=== PATIENT | male | born 1945 | race Caucasian/White ===

== ENCOUNTER → 2016-11-20 | Outpatient (CLI) | payer OTHER ==
[~2016-11-20] VITALS: Ht 175.3 cm; Wt 77.6 kg
[~2016-11-20] MED LIST: ACETAMINOPHEN-1 EACH; AFRIN MENTHOL S15 ML; AFRIN MENTHOL S15 ML NS; AFRIN NASAL SPRAY NASAL; ALEVE220 MG; ALLOPURINOL 10100 M1 PO; AMBEREN; AMBIEN 10 MG TA10 MG; AMBIEN 10 MG TA10 MG PO; ANAPROX PO; APAP500 PO; ATIVAN1 MG PO; BEANO1 EACH; BEANO1 EACH PO; BENADRYL25 MG; BENADRYL25 MG PO; BIOTIN PO; BUTALB-ACETAMI1 EAC1 PO; BUTALB-APAP-CA1 EACH PO; CALCIUM; CARDURA8 MG; CARDURA8 MG PO; CATAPRES-TTS 10.1 MG PO; CATAPRES0.2 MG PO; CITRACAL PLUS1 EAC1 PO; CLONAZEPAM 1 MG1 M1; CLONAZEPAM 1 MG1 M1 PO; CLONIDINE; CLONIDINE HCL0.2 M2 PO; CO Q-1010 MG; CO Q-10100 MG PO; COLACE1 EAC1; COLACE100 MG; COLACE100 MG PO; COUMADIN 5 MG TA5 M1; COUMADIN 5 MG TA5 M1 PO; CRESTOR10 MG; CRESTOR10 MG PO; CVS FISH OIL 11 EAC3; CYTOMEL 25 MCG25 MCG; DOXYLAMINE; ENDOCET; EYE LUBRICANT; FIBER0.52 GM; FIORICET 50-321 EACH PO; FISH OIL 1,001000 M2 PO; FLAX OIL1000 MG PO; FLECAINIDE ACE150 MG; FLECAINIDE ACE150 MG PO; FLECAINIDE ACET50 M1 PO; FLECTOR PATCH1 EA TP; FML 0.1% 10ML10 M1; GAS-X125 MG; GLUCOSAMIN-CHO1 EACH PO; GREEN TEA1 EACH; HYDRALAZINE 5050 MG PO; HYDROCHLOROTHIA25 M1; HYDROCHLOROTHIA25 M1 PO; HYDROCHLOROTHIA25 M2 PO; IRON325; IRON325 PO; KLOR-CON 1010 MEQ; KLOR-CON 1010 MEQ PO; LEVOTHYROXINE0.2 M1 PO; LIPITOR20 MG PO; LISINOPRIL20 MG PO; LISINOPRIL30 MG; LISINOPRIL40 MG PO; LYRICA 50 MG50 MG PO; LYRICA 75 MG CA75 MG PO; MAGNESIUM OXID200 MG PO; MELATONIN1 MG PO; MELATONIN3 MG PO; MELATONIN5 M1; METAMUCIL PAC1 UDPKT PO; METAMUCIL PLUS1 EACH PO; MIRALAX255 GM PO; MIRAPEX0.125 MG; MIRAPEX0.125 MG PO; MULTIVITAMINS; MYLANTA TABLET1 TA1; Melatonin PO; NEXIUM40 MG; NEXIUM40 MG PO; OCUVITE LUTEIN1 EAC1 PO; OCUVITE TABLET1 EAC1 PO; OMEGA-3 FISH1000 MG; OMEPRAZOLE-BIC1 EAC1 PO; OMEPRAZOLE-BIC1 EACH PO; OMEPRAZOLE40 MG PO; ONDANSETRON HCL4 M2 PO; OXYCODONE HCL10 MG PO; OXYCODONE HCL15 MG; OXYCODONE HCL15 MG PO; OXYCONTIN30 MG; OXYCONTIN30 MG PO; OXYCONTIN60 MG PO; PEPCID COMPLET1 EACH; PEPCID COMPLET1 EACH PO; PRADAXA150 MG PO; PROBIOTIC1 EAC1 PO; RAPAFLO8 MG PO; SENOKOT-S TABL1 EACH; SENOKOT-S1 TA1; SONATA10 MG; SONATA10 MG PO; SYNTHROID PO; SYNTHROID125 MCG PO; SYNTHROID150 MCG PO; SYNTHROID25 MCG PO; TAMBOCOR PO; TOPROL XL25 MG; TOPROL XL25 MG PO; TUMS200 MG PO; UNISOM SLEEP AI25 MG PO; VITAMIN B 1 PO; VITAMIN B COMP1 EAC7 PO; VITAMIN B PO; VITAMIN B2 PO; VITAMIN D1000 UNI1; VITAMIN D1000 UNI1 PO; VITAMIN D3400 UNI1 PO; VITAMIN D400 UNI1; VITAMINC500 PO; ZOCOR 10 MG TAB10 MG PO; [UNRECOGNIZED DRUG - CODE] PO; [UNRECOGNIZED DRUG - OTHER]; [UNRECOGNIZED DRUG - OTHER]; [UNRECOGNIZED DRUG - OTHER]; [UNRECOGNIZED DRUG - OTHER] PO
--- NOTE | ~2016-11-20 | HPC ---
[facility] [address] [address] PAIN MANAGEMENT CONSULTATION Name: TELLY EVANS Room #: REG HEIDY Shelton.#: [id number] Admission: 11/20/16 Attend Phys: Cliff Harper MD Discharge: Date of : 47 Report #: [id number] THIS REPORT FOR: //name// CC: Leonard Harper DATE OF SERVICE: 11/20/2016 Followup visit for medication management of chronic intractable pain, fibromyalgia, multiple back pain and arthritis. The patient returns to clinic today for consultation, says he is having increasing pain throughout his back and into his legs. He remains on a complex polypharmacy regimen. He has longstanding neurosis with depression and anxiety, which has been pretty stable for quite some time now. He has had complaints of foot pain which may be consistent with neuropathy or radiculopathy. He is currently on fairly high dose oxycodone, 30 mg of OxyContin b.i.d. and Oxy 15 one tablet 4 times daily for breakthrough pain. He has been quite stable on this medication for some time and has been on a written opioid agreement. I have reviewed his record back as far as it has been thinned to 2008, this has been stable dose. His other medications have also been part of that regimen. We spent some time today discussing the CDC guidelines which recommend top level of medication at the morphine milligram equivalency of 90 per day. He is currently on twice that. With his underlying depression, anxiety, neurosis, the thought of tapering him created a bit of distress. I decided today that we would not change his medication, but I have told him that in the future, we may consider tapering his doses ever so slightly. I think that we could probably taper his Oxy 15 breakthrough medications to Oxy 10 and at next visit, we will attempt that adjustment. I have decided knowing the patient will be best preparing for that adjustment. Tapering his medications on a day when he comes in complaining of increased pain is difficult. The pain is diffuse, is not consistent with specific radiculopathy. He is not a good candidate for injection therapy having failed in the past and also had significant side effects from steroids. PHYSICAL EXAMINATION: His affect is pleasant. He only became anxious when we began discussing his medication adjustments. VITAL SIGNS: Blood pressure 146/87, heart rate 70, respirations 14, BMI is 25.2. EXTREMITIES: He moves from sitting to standing position, he ambulates without antalgic features. IMPRESSION: [facility] [address] [place] [address] PAIN MANAGEMENT CONSULTATION Name: TELLY EVANS [facility] [id number] Admission: 11/20/16 Attend Phys: Cliff Harper MD Discharge: Date of : 47 Report #: [id number] 1. Chronic intractable back pain. 2. Fibromyalgia. 3. Multiple joint pains with osteoarthritis involving hips, knees and ankles. 4. Neurosis with depression and anxiety. 5. Sleep apnea. 6. Hypertension. 7. History of transient ischemic attacks. 8. Management of high risk medication. Medications were renewed under terms of our opioid agreement. Importance of safeguarding all medications was discussed. I reviewed his last urine drug screen which was appropriate for his oxycodone and other medications prescribed to the clinic. There were no suspected results. Follow up in 3 months. By: [id number] Cliff Harper MD /nt
[2016-11-20 13:11] VITALS: BP 146/87
== END ==
LOC: PAIN 06:33
DX: M54.9 Dorsalgia, unspecified (principal); M79.7 Fibromyalgia; M19.91 Primary osteoarthritis, unspecified site; F32.9 Major depressive disorder, single episode, unspecified; F41.9 Anxiety disorder, unspecified; I10 Essential (primary) hypertension; Z79.899 Other long term (current) drug therapy; Z86.73 Personal history of transient ischemic attack (TIA), and cerebral infarction without residual deficits; G47.30 Sleep apnea, unspecified

== ENCOUNTER → 2017-03-05 | Outpatient (CLI) | payer OTHER ==
[~2017-03-05] VITALS: Ht 172.7 cm; Wt 78.5 kg
[~2017-03-05] MED LIST changes: +ROXICODONE5 MG PO
--- NOTE | ~2017-03-05 | HPC ---
[facility] [place] [address] PAIN MANAGEMENT CONSULTATION Name: TELLY EVANS Room #: REG HEIDY Shelton.#: [id number] Admission: 03/05/17 Attend Phys: Cliff Harper MD Discharge: Date of : 47 Report #: [id number] THIS REPORT FOR: //name// CC: Cliff Matthews MD DATE OF SERVICE: 03/05/2017 Followup visit for chronic intractable pain, fibromyalgia. Multiple pain generators and medication management with polypharmacy. This is a followup visit for the patient who has been a patient of our clinic for over 10 years. He is on a fairly hefty polypharmacy regimen for management of pain, depression, anxiety and neurosis. We have worked with his medications off over the years and try to continue and utilize the lowest effective dose. He is here today with his . He is currently quite stable. He has not been hospitalized over the course of the last 3 months. He has a number of worries and anxieties. Overall, however, he continues to function at a fairly high level. His pain is a 6/10 and today he complains of pain in his back, pain in his right knee, pain in his neck, pain in both feet and hands, numbness and tingling. He has diffuse myofascial pains consistent with fibromyalgia. PAST MEDICAL HISTORY: Remarkable for fibromyalgia, history of TIA. He has sleep apnea and uses a CPAP at night. He suffers from insomnia. 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 He has diverticulitis, kidney stones and osteoarthritis. PHYSICAL EXAMINATION: He is quite pleasant today. He does appear to be in good spirits. No signs of depression, anxiety or overmedication. His blood pressure is 93/57, heart rate 58, respirations 16, BMI is 26.3. H is able to move easily from sitting to standing position, walks slowly with a stable gait. He does not appear to be a fall risk. He has diffuse tenderness associated with myofascial pains as well as osteoarthritis. IMPRESSION: 1. Chronic intractable pain with fibromyalgia and multi-joint arthralgia. 2. Chronic intractable back pain with spondylosis. 3. Neurosis with depression and anxiety. 4. Sleep apnea. 5. Hypertension. [address] [address] PAIN MANAGEMENT CONSULTATION Name: TELLY EVANS Room #: REG CLI NikitaXenia#: [id number] Admission: 03/05/17 Attend Phys: Cliff Harper MD Discharge: Date of : 47 Report #: [id number] 6. Management of high risk medication. PLAN: I will renew the following medications today under terms of our opioid agreement: 1. OxyContin 30 mg 1 tablet b.i.d., oxycodone will be reduced from 15 mg 4 times daily to 10 mg 4 times daily for breakthrough pain. This will necessitate the use of oxycodone 5 mg tablets 2 tablets taken every 6 hours as needed. Prescriptions noted the fact that this is a reduction, although the number of pills prescribed is higher. 2. Clonazepam 1 mg 60 tablets. 3. Ambien 10 mg 30 tablets 1 tablet at bedtime with 2 refills. Most recent urine drug screen was reviewed and is appropriate for medications provided. We will see him back in the pain clinic in 3 months. By: [id number] Cliff Harper MD /nt
[2017-03-05 11:03] VITALS: BP 93/57
== END | disposition home or self-care (01) ==
LOC: PAIN 07:30
DX: G89.29 Other chronic pain (principal); F32.9 Major depressive disorder, single episode, unspecified; F41.9 Anxiety disorder, unspecified; I10 Essential (primary) hypertension; M79.7 Fibromyalgia; M47.9 Spondylosis, unspecified; Z79.899 Other long term (current) drug therapy; G45.9 Transient cerebral ischemic attack, unspecified

== ENCOUNTER 2017-06-04 16:00 | Emergency (ER) | payer OTHER ==
[~2017-06-04] VITALS: Ht 172.7 cm; Wt 77.1 kg
[~2017-06-04 16:00] MED LIST changes: +MAGOX 400400 MG PO; +SYNTHROID100 MCG PO
[2017-06-04 17:15] LABS: ABSOLUTE NEUTROPHILS 3.6 thou/uL (1.4-8.2); BASOPHILS 0.8 % (0.0-2.0); EOSINOPHILS 2.6 % (0.0-3.0); HEMATOCRIT 42.2 % (42.0-52.0); HEMOGLOBIN 14.5 gm/dL (14.0-18.0); LYMPHOCYTES 17.2 % (24.0-44.0); MCH 29.8 pg (26.0-34.0); MCHC 34.3 g/dL (28.0-37.0); PLATELET COUNT 136 thou/uL (150-400); POLYS 73.4 % (36.0-66.0); RBC 4.85 mil/uL (4.50-6.00); RDW 13.9 % (10.5-14.5)
[2017-06-04 17:16] LABS: MANUAL DIFF NO
[2017-06-04 17:26] LABS: CALCIUM 9.1 mg/dL (8.5-10.1); CREATININE 1.3 mg/dL (0.7-1.3); POTASSIUM 3.9 mmol/L (3.5-5.1)
[2017-06-04] MEDS ORDERED: HYDROCORTISONE30 G9 RECTAL (18:00)
[2017-06-04 18:15] VITALS: BP 123/62
== END 2017-06-04 18:15 | disposition home or self-care (01) ==
LOC: ER 16:00
PROVIDERS: Nurse Practitioner
DX: K59.00 Constipation, unspecified (principal); K62.89 Other specified diseases of anus and rectum; G03.9 Meningitis, unspecified; I48.91 Unspecified atrial fibrillation; Z79.01 Long term (current) use of anticoagulants; E78.00 Pure hypercholesterolemia, unspecified; F41.9 Anxiety disorder, unspecified; G45.9 Transient cerebral ischemic attack, unspecified; M79.7 Fibromyalgia; Z87.442 Personal history of urinary calculi; Z88.0 Allergy status to penicillin; Z88.8 Allergy status to other drugs, medicaments and biological substances; Z91.041 Radiographic dye allergy status; Z88.1 Allergy status to other antibiotic agents; Z91.040 Latex allergy status

== ENCOUNTER → 2017-08-31 | Outpatient (CLI) | payer OTHER ==
[~2017-08-31] VITALS: Ht 172.7 cm; Wt 77.1 kg
[~2017-08-31] MED LIST changes: +FLOMAX0.4 MG PO; +HYDROCORTISONE30 G9 RECTAL; +MIRALAX17 GM PO; +NEURONTIN 300300 M1 PO
--- NOTE | ~2017-08-31 | HPC ---
[facility] [address] [address] PAIN MANAGEMENT CONSULTATION Name: TELLY EVANS Room #: REG HIEDY Shelton.#: [id number] Admission: 08/31/17 Attend Phys: Cliff Harper MD Discharge: Date of : 47 Report #: [id number] THIS REPORT FOR: //name// CC: Cliff Matthews MD DATE OF SERVICE: 08/31/2017 Followup visit for management of polypharmacy high risk medication for chronic intractable pain and multiple pain generators. The patient is here today with his . We reviewed his medication and his day-to-day functioning. He is doing reasonably well. He is looking forward to doing some additional woodworking projects. His pain has been adequately controlled with current medication regimen. We have been reluctant to change it due to his extensive past medical history. We have been able to avoid additional hospitalizations, Emergency Room visits and other issues related to pain with the current regimen. When asked to describe his pain today for the nursing surgical services director in the room, he began it is neck, occiput, went through his hands and feet, torso, hips, left leg and then added fibromyalgia with muscle aches and pains throughout his body and an extensive description of pain in his forearms. He also has migraine headaches. Despite these widespread multiple pain generators, he has over the years responded well to medication and shown no misuse or abuse. We have reviewed with him the CDC guidelines particularly the dosing recommendations and he has made efforts to taper his medication. Further tapering was recommended today and he has been agreeable to do so. We also have discussed the use of clonazepam and oxycodone. The combination of a benzodiazepine and an opioid considered dangerous certainly in naive patients. The patient would be anything, but naive. He has been on a combination of an opioid and benzodiazepine for as long as he has been within our practice. Reviewing available records in front of me, I see that he was on clonazepam 1 mg and oxycodone at much higher dose as far back as 2009. The concerns of respiratory depression and over sedation, I think are very small for the patient. Other medications that I have provided for him to aid with sleep over the years have included antidepressant medications and zolpidem, which he has been on also for a number of years without issues. Review of the record shows this was prescribed as early as 2010. PQRS review per Medicare request requirements is performed today. He does have pain in his joints consistent with age-related osteoarthritis. Multiple joints are uncomfortable including his shoulders, elbows, [place] [address] PAIN MANAGEMENT CONSULTATION Name: TELLY EVANS Room #: [facility] [id number] Admission: 08/31/17 Attend Phys: Cliff Harper MD Discharge: Date of : 47 Report #: [id number] controlled his weight with a BMI of 25.9. His vital signs are stable without signs of hypertension, although he has been treated for that in the past and currently. Blood pressure today 142/81, heart rate 61 and O2 sat on room air 96. Pain score is given as 5/10 with medication. He is not a fall risk. However, he uses a cane for stability. He is on a blood thinner Pradaxa for atrial fibrillation. He has signed an opioid agreement and has completed a functional assessment tool and risk assessment. He is at low risk for addiction. His function tool, however, suggests that he is severely limited by his pain far more so than he describes today as we discussed his day-to-day activities. He does not smoke nor use alcohol. IMPRESSION: 1. Chronic back pain with spondylosis. 2. Diffuse myofascial pain with fibromyalgia. 3. Multiple joint aches and pains including shoulders, hips and knees consistent with osteoarthritis. 4. Sleep apnea. 5. Hypertension. 6. Atrial fibrillation on Coumadin. 7. History of neurosis with depression and anxiety. PLAN: I have renewed his medications under terms of our written agreement. I have reduced his oxycodone 10/325 from 4 tablets a day to 3 tablets a day. His narcotic dose will therefore be OxyContin 30 mg b.i.d., oxycodone 10 mg/325 three per day for breakthrough pain or a total of 90 oxycodone milligrams equal to 135 morphine milligram equivalents. A buccal drug screen will be performed at next visit. Time spent with the patient 30 minutes. <ELECTRONICALLY SIGNED> By: Cliff Harper MD 10/12/17 1408 [id number] Cliff Harper MD /nt
[2017-08-31 12:47] VITALS: BP 142/81
== END ==
LOC: PAIN 07:38
DX: M47.896 Other spondylosis, lumbar region (principal); M79.7 Fibromyalgia; G47.30 Sleep apnea, unspecified; I10 Essential (primary) hypertension; I48.91 Unspecified atrial fibrillation; F32.9 Major depressive disorder, single episode, unspecified; F41.9 Anxiety disorder, unspecified; M19.012 Primary osteoarthritis, left shoulder; M19.011 Primary osteoarthritis, right shoulder; M16.0 Bilateral primary osteoarthritis of hip; M17.0 Bilateral primary osteoarthritis of knee

== ENCOUNTER → 2017-12-07 | Outpatient (CLI) | payer OTHER ==
[~2017-12-07] VITALS: Ht 172.7 cm; Wt 81.4 kg
--- NOTE | ~2017-12-07 | HPC ---
[facility] [place] [address] [address] [place] [address] PAIN MANAGEMENT CONSULTATION Name: TELLY EVANS Room #: REG HEIDY SheltonXenia#: [id number] Admission: 12/07/17 Attend Phys: Cliff Harper MD Discharge: Date of : 47 Report #: [id number] THIS REPORT FOR: //name// CC: Cliff Matthews DATE OF SERVICE: 12/07/2017 Followup visit for chronic pain. The patient with multiple pain generators as noted throughout his record. I have known him now for several decades and provide medication for him under terms of our written agreement. He has not had a buccal drug screen done in some time, it was performed today. Medications I provide are OxyContin 30 mg b.i.d., OxyIR 10 mg t.i.d. He has been chronically on a benzodiazepine, Klonopin for anxiety at 1 mg b.i.d., Ambien 10 mg at bedtime and I also gave him a compound cream that he uses from [facility] to help with his pain. His pain again really goes from head to toe including fibromyalgia, muscle aches, joint pains and other issues. Today, he complains mostly of his back, right knee, neck, feet, hands, hips, eye and his left shoulder. We talked about things that he likes to do like woodworking. He says he has not been doing as much of that because of the pain. We had a philosophical discussion about pain today and I talked to him about trying to remain as active as possible and that pain was trying to fercho him of the joyful things that he likes to do. Many of those things he can do even with pain and he should pace himself and see if he can continue to remain active. He seemed responsive to this. PHYSICAL EXAMINATION: He is pleasant, a little today. Blood pressure 108/68, heart rate 55, respirations 16. BMI 27.3. He has multiple tenderness throughout his muscles. Some pain in his joints, primarily in his left shoulder. IMPRESSION: 1. Chronic low back pain with spondylosis. 2. Fibromyalgia. 3. Osteoarthritis with multiple aching joints, primarily left shoulder today. 4. Sleep apnea. 5. Hypertension. 6. Atrial fibrillation, on Coumadin. 7. History of depression and anxiety. [facility] [address] [place] [address] PAIN MANAGEMENT CONSULTATION Name: TELLY EVANS Room #: REG [facility] Sandie#: [id number] Admission: 12/07/17 Attend Phys: Cliff Harper MD Discharge: Date of : 47 Report #: [id number] 8. Management of high risk medication under terms of written opioid agreement. I reviewed terms of his agreement. I have done his buccal drug screen today. I will plan to see him back in the pain clinic in 3 months. I did tell him that he was at a high morphine milligram equivalency today, showed him that if we combine his OxyContin and OxyIR, it comes to a total of 90 oxycodone milligrams, which equals 135 morphine milligram equivalents. This puts him in the CDC of high category and we must possibly consider tapering his medication. The patient is so challenging from a psychological standpoint, I think we need to be cautious about changing his medications and I will do it on a day where he seems more receptive and upbeat and positive. He has been on these doses for many years. By: [id number] Cliff Harper MD /nt
[2017-12-07 11:09] VITALS: BP 108/68
== END ==
LOC: PAIN 06:54
DX: M47.26 Other spondylosis with radiculopathy, lumbar region (principal); G47.30 Sleep apnea, unspecified; I10 Essential (primary) hypertension; I48.91 Unspecified atrial fibrillation; F32.9 Major depressive disorder, single episode, unspecified; F41.9 Anxiety disorder, unspecified; M79.7 Fibromyalgia; M19.012 Primary osteoarthritis, left shoulder

== ENCOUNTER → 2018-06-03 | Outpatient (CLI) | payer OTHER ==
[~2018-06-03] VITALS: Ht 172.7 cm; Wt 82.7 kg
[~2018-06-03] MED LIST changes: +MELATONIN5 M1 PO; -METAMUCIL PAC1 UDPKT PO; -OMEPRAZOLE-BIC1 EACH PO; +OMEPRAZOLE20 MG PO; +OXYCONTIN20 M1 PO; +POTASSIUM CITR15 MEQ PO; +POTASSIUM20 PO; +SYNTHROID100 MC1 PO; -SYNTHROID100 MCG PO
--- NOTE | ~2018-06-03 | HPC ---
[facility] [address] [place] [address] PAIN MANAGEMENT CONSULTATION Name: TELLY EVANS Room #: REG Chris Hooper#: [id number] Admission: 06/03/18 Attend Phys: Catia Alva Discharge: Date of : 47 Report #: [id number] THIS REPORT FOR: //name// CC: Catia Harper DATE OF SERVICE: 06/03/2018 CHIEF COMPLAINT: Followup visit for his chronic pain. He has multiple pain generators. HISTORY OF PRESENT ILLNESS: This patient returned to the clinic today for refill of his medication. He is a gentleman that has multiple pain generators. He is telling me today that he has pain in his lower back, both his feet, his shoulders and buttock, all of his hands. He tells me he has a new diagnosis of myofascial pain in his feet and he also has a neuroma. He tells me that his pain has been increasing lately and rates his pain at 8/10 today. He tells me that he has had burning, stabbing, aching, especially when he is walking and standing; seems to me that his feet are his worst pain today. He would like a refill of his medications. He is currently on OxyContin 30 mg twice a day and OxyIR 10 mg 3 times a day. ALLERGIES: GABITRIL, SAVELLA, CLINDAMYCIN, GABAPENTIN, GADOLINIUM CONTAINING CONTRAST. CURRENT LIST OF MEDICATIONS: OxyContin 30 mg twice a day, OxyIR 10 mg 3 times a day, Ambien 10 mg, clonazepam 1 mg every 12 hours, potassium 20 mEq daily, potassium citrate ER 15 mEq 3 times a day, Metamucil, Pradaxa, Flomax, omeprazole, Synthroid, mag oxide, MiraLax, melatonin, Tambocor, lisinopril, hydrochlorothiazide, Lipitor, hydralazine, butalbital, acetaminophen, caffeine, Colace, multivitamin, and metoprolol. PQRS: Today: 1. He has diffuse multiple joint osteoarthritis and lumbar spondylosis. Denies rheumatoid arthritis. 2. Height is 5 feet 8 inches, weight 182, BMI is 27.7. 3. Vital signs: Blood pressure 147/76, pulse is 63, respirations 16, oxygen sat is 98. 4. Pain intensity is 8/10. 5. Fall risk. He denies falls in the last 3 months. He does not need help walking or standing and he does not have any dizziness. 6. The patient's blood thinner is Pradaxa and he takes antihypertensive. 7. He is on opioid therapy greater than 6 weeks and an opioid signed contract is on the chart. 8. His risk assessment tool is moderate. His functional assessment is 61/70. [facility] [address] [place] [address] PAIN MANAGEMENT CONSULTATION Name: EVANSTELLY BURGER FREDIS Room #: REG HEIDY Hooper#: [id number] Admission: 06/03/18 Attend Phys: Catia Alva Discharge: Date of : 47 Report #: [id number] 9. This patient denies recreational drug use. He does not smoke and he occasionally drinks alcohol. We did check his prescription monitoring system from the [facility]. The patient is filling appropriately from Dr. Cliff Harper. There is a recent drug screen that is positive for his scheduled medications. PHYSICAL EXAMINATION: GENERAL: This is a well-developed, well-nourished gentleman of 73 years old. He appears his stated age. He is alert and oriented. His affect is appropriate. 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 Small scar on his right side. Mucous membranes are moist. Hearing is adequate. NECK: No JVD or adenopathy. He has some tenderness in his shoulders. MUSCULOSKELETAL: Complains of tenderness in his back and hips, bilateral feet burning. His muscle strength is judged to be 5/5 in all major muscle groups in his lower extremities. The patient does wear corrective shoes today. IMPRESSION: 1. Chronic intractable pain syndrome with lumbar spondylosis, osteoarthritis and fibromyalgia. 2. History of depression and anxiety. 3. Hypertension. 4. Sleep apnea. 5. Atrial fibrillation. 6. Management of complex medicine high risk under terms of written opioid agreement. We reviewed the fact that opiate medications are being used to provide analgesia adequate to support activities of daily living, not attempting to achieve a specific pain score on the 0-10 Visual Analog Scale. The current opiate medications are providing sufficient analgesia to allow the patient to participate in activities of daily living. The patient is not exhibiting any aberrant behavior suggestive of drug diversion. The patient is not having any adverse reactions to medications. The patient is not suffering from daytime somnolence or mental acuity changes. The patient is managing opiate-induced constipation with appropriate [id number] agents and dietary considerations. The patient was counseled on concern for caution with operating a motor vehicle while using opiate medications. A physical exam was performed and the patient's functional status was evaluated. All patients with back pain were advised against the bed rest greater than 4 days and were advised to return to normal activities. Pain score assessment was noted and the treatment plan was reviewed with the patient. All current medications, both prescribed and OTC were reviewed and reconciled on the [address] [address] PAIN MANAGEMENT CONSULTATION Name: TELLY EVANS Room #: REG [facility].#: [id number] Admission: 06/03/18 Attend Phys: Catia Alva Discharge: Date of : 47 Report #: [id number] electronic medical record. Tobacco screening was accomplished and smoking cessation was advised when indicated. BMI was noted and diet/exercise modification was recommended for all patients following outside normal parameters. I reviewed with the patient today their responsibilities to safeguard prescription medications, reviewed their responsibility to utilize medications only as prescribed by the physician. They are to seek and receive pain medications only from 1 physician group ( [facility]). They are to use 1 pharmacy and keep the clinic informed if they change pharmacies. Their responsibilities include making followup visits in a timely fashion and to avoid abrupt discontinuation of medication usage. Their responsibilities further include bringing their medications (bottles from the pharmacy with residual pills) to the visit for possible confirmation of pill counts and the patient understands it is their responsibility to submit to random drug screens to ensure both that the medications prescribed are present, and that no other controlled substances are present. All prescriptions provided today were generated electronically. PLAN: 1. We talked at length today about tapering his medication. Dr. Harper had discussed this at his last visit in February. It has been about a year since he has decreased his medicine and according to the CDC guidelines, he is above the 90 MME, our calculation is he is at 135 currently. The patient is complaining of increased pain today, but he is agreeable to decrease. I had offered him to decrease his OxyIR to either two tablets a day of the 10 mg or decrease to 3 tablets a day of the 7.5/325. The patient is not wanting to take any extra Tylenol; he is wondering about decreasing his OxyContin, his long acting medication. I am agreeable with that, that would take him from 135 MME to 105 MME daily. The patient is worried that his pain will increase, that he continues to have an average pain score of 8/10. We did talk about that we will not make him pain-free, his receptors will be reset and his body will adjust to his due level of medication. It had been a year since we had done it and he seems to have tolerated that decrease without difficulty. The patient agreed with that statement. 2. Scripts for OxyContin 20 mg b.i.d., #60 for today, 4-week and 8-week was given. OxyIR 10 mg, #90 for today, 4-week and 8-week was given. Other scripts: Clonazepam 1 mg every 12 hours, #60 with 2 refills; Ambien 10 mg at bedtime, #30 with 2 additional refills was also given. 3. The patient does deny constipation at this time, but I reminded him that all of these narcotics make him constipated and to make sure that he is on his bowel regimen that he uses on a daily basis. 4. The patient will be seen in 3 months' time for a followup visit for his medications unless he needs to see us earlier. [address] [address] PAIN MANAGEMENT CONSULTATION Name: TELLY EVANS Room #: REG CLI Sandie#: [id number] Admission: 06/03/18 Attend Phys: Catia Alva Discharge: Date of : 47 Report #: [id number] The patient was seen in collaboration today with Dr. Cliff Harper. <ELECTRONICALLY SIGNED> By: Catia Alva 06/04/18 1014 [id number] Catia Alva /chandra
[2018-06-03 13:20] VITALS: BP 147/76
== END ==
LOC: PAIN 10:08
DX: M47.816 Spondylosis without myelopathy or radiculopathy, lumbar region (principal); M19.90 Unspecified osteoarthritis, unspecified site; M79.7 Fibromyalgia; G89.4 Chronic pain syndrome; I10 Essential (primary) hypertension; I48.91 Unspecified atrial fibrillation; G47.30 Sleep apnea, unspecified; F32.9 Major depressive disorder, single episode, unspecified; F41.9 Anxiety disorder, unspecified; Z79.891 Long term (current) use of opiate analgesic

== ENCOUNTER → 2018-08-26 | Outpatient (CLI) | payer OTHER ==
[~2018-08-26] VITALS: Ht 172.7 cm; Wt 79.6 kg
[2018-08-26 11:06] VITALS: BP 118/72
--- NOTE | 2018-08-26 11:23 | NUR ---
Pain Clinic Assessment: 1. History of Osteoarthritis: Not Applicable History of Rheumatoid Arthritis: Not Applicable 2. Height: 5 ft. 8 in. 172.7 cm. Weight: 175.4 lb. oz. 79.561 kg. Patient's BMI: 26.7 3. Vital Signs: BP: 118/72 Pulse: 56 Resp: 20 Temp: 02 Sat: 98 ECG Mon: 4. Pain Intensity: 7 5. Fall Risk: Dizziness: N Needs help standing or walking: N Fallen in the last 3 months: N Fall risk comments: 6. Patient on Blood Thinner: Dabigatran Etex (Pradaxa) 7. History of Hypertension: Y 8. Opioid Therapy greater than 6 weeks: Y Opiate Contract Signed: 11/22/15 9. Risk Assessment Tool Provided: mod risk-4 10. Functional Assessment Tool: / 11. Recreational Drug Use: Never Drug Type: Tobacco Use: Never Smoker Tobacco Type: Amount or Packs/day: How Many Years: Alcohol Use: Yes Frequency: Quant:
--- NOTE | 2018-08-27 12:36 | HPC ---
[facility] [place] [address] PAIN MANAGEMENT CONSULTATION Name: TELLY EVANS Room #: REG CL MXeniaR.#: [id number] Admission: 08/26/18 ������������������ Attend Phys: Catia Alva Discharge: ������������������ Date of : 47 Report #: [id number] THIS REPORT FOR: //name// CC: Catia Harper DATE OF SERVICE: 08/26/2018 CHIEF COMPLAINT: Chronic pain with multiple pain generators. HISTORY OF PRESENT ILLNESS: The patient returns to the pain clinic today for refill of his medications. He tells me it has been a rough couple of months since we have decreased his medications at his last visit. The patient tells me all of his joints are hurting as well as his low back and bilateral feet. He tells me he is not sleeping very well, generalized aches and pains all over. He denies constipation. He states actually is less. He feels like since the last time he was here, thinks that reducing the medication has caused this though he does take some MiraLax as needed. He rates his pain score as 7/10 today and would like a refill of his medication or a possible increase back to where he was. ALLERGIES: GABITRIL, SAVELLA, CLINDAMYCIN, GABAPENTIN. CURRENT LIST OF MEDICATIONS: Oxycodone IR 10 mg t.i.d., Ambien 10 mg at bedtime p.r.n., OxyContin 20 mg b.i.d., clonazepam 1 mg b.i.d., potassium chloride 20 mEq daily, potassium citrate 15 mEq 3 times a day, Zestril 20 mg t.i.d., Tambocor 75 mg b.i.d., melatonin 10 mg at bedtime, MiraLax as needed, Mag-Ox 400 mg daily, Synthroid 100 mcg on Wednesdays, Synthroid 200 mcg daily, omeprazole 20 mg twice a day, Flomax 0.4 mg at bedtime, Pradaxa 150 mg b.i.d., Metamucil as needed, hydrochlorothiazide 25 mg daily, Lipitor 20 mg daily, hydralazine 50 mg t.i.d., Fioricet as needed, Colace as needed, multivitamin daily, Gas-X as needed, Unisom p.r.n., Toprol 25 mg daily. PQRS: The patient has diffuse multiple joint osteoarthritis and lumbar spondylosis. Denies rheumatoid arthritis. Height 5 feet 8 inches, weight is 175. BMI is 26. Vital signs, 118/72, pulse is 56, respirations 20, oxygen sat 98. Pain score 7/10. Fall risk, denies dizziness. Does not need help walking or standing. Has not fallen in the last 3 months. Blood thinner is Pradaxa and he does take medicines for hypertension. His opioid therapy is greater than 6 weeks. Therefore, an opioid signed contract is on the chart. His risk assessment tool is moderate and his functional assessment is 61/70. The patient denies recreational drugs. Does not smoke and occasionally drinks alcohol. We did check the prescription monitoring system. The patient is filling appropriately from his medications from Dr. Cliff Harper. He tells me that he [address] [address] PAIN MANAGEMENT CONSULTATION Name: TELLY EVANS Room #: REG HEIDY Hooper#: [id number] Admission: 08/26/18 ������������������ Attend Phys: Catia Alva Discharge: ������������������ Date of : 47 Report #: [id number] does safeguard his medications. There is a current drug screen on the chart within the past year. PHYSICAL EXAMINATION: This is a well-developed, well-nourished gentleman who appears his stated age of 73. He is alert and orientated and his affect is appropriate. 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 Normal vision on the right. Mucous membranes are moist. Hearing is adequate. MUSCULOSKELETAL: Complains of generalized tenderness in all of his joints. His muscle strength is judged to be 5/5 in all major muscle groups in his lower and upper extremities. The patient does wear corrective shoes. IMPRESSION: 1. 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 2. Osteoarthritis. 3. Fibromyalgia. 4. History of depression and anxiety. 5. Hypertension. 6. Sleep apnea. 7. Atrial fibrillation. 8. Management of complex high risk medication in terms of written opioid agreement. We reviewed the fact that opiate medications are being used to provide analgesia adequate to support activities of daily living, not attempting to achieve a specific pain score on the 0-10 Visual Analog Scale. The current opiate medications are providing sufficient analgesia to allow the patient to participate in activities of daily living. The patient is not exhibiting any aberrant behavior suggestive of drug diversion. The patient is not having any adverse reactions to medications. The patient is not suffering from daytime somnolence or mental acuity changes. The patient is managing opiate-induced constipation with appropriate edfe-vsy-rejdszk agents and dietary considerations. The patient was counseled on concern for caution with operating a motor vehicle while using opiate medications. A physical exam was performed and the patient's functional status was evaluated. All patients with back pain were advised against the bed rest greater than 4 days and were advised to return to normal activities. Pain score assessment was noted and the treatment plan was reviewed with the patient. All current medications, both prescribed and OTC were reviewed and reconciled on the electronic medical record. Tobacco screening was accomplished and smoking cessation was advised when indicated. BMI was noted and diet/exercise modification was recommended for all patients following outside normal parameters. I reviewed with the patient today their responsibilities to [facility] [address] [place] [address] PAIN MANAGEMENT CONSULTATION Name: TELLY EVANS FREDIS Room #: REG CL Sandie#: [id number] Admission: 08/26/18 ������������������ Attend Phys: Catia Alva Discharge: ������������������ Date of : 47 Report #: [id number] prescription medications, reviewed their responsibility to utilize medications only as prescribed by the physician. They are to seek and receive pain medications only from 1 physician group ( [facility]). They are to use 1 pharmacy and keep the clinic informed if they change pharmacies. Their responsibilities include making followup visits in a timely fashion and to avoid abrupt discontinuation of medication usage. Their responsibilities further include bringing their medications (bottles from the pharmacy with residual pills) to the visit for possible confirmation of pill counts and the patient understands it is their responsibility to submit to random drug screens to ensure both that the medications prescribed are present, and that no other controlled substances are present. All prescriptions provided today were generated electronically. PLAN: 1. We discussed treatment options with the patient today. We had decreased his OxyContin 3 months ago to get him closer in guidelines with the CDC. He was at 135 MME per day. By decreasing his OxyContin, he is now at 105, which is closer to the 105 MME, which is closer to the CDC guidelines of 90. The patient tells me that he had rough few months, though his pain score given today is lower than it has been and he is having less constipation and side effects from the decrease of his medications. 2. I explained to the patient as did Dr. Harper, that we will keep him at the same rate of medications that he is on now. We have no plans to decrease him in the near future. We will let him stabilize on his current medications and see how he continues to do. 3. Scripts given for OxyContin 20 mg b.i.d. for today for an 8-week release. 4. Medication OxyIR 10 mg t.i.d., #90 for today, 4-week and 8-week release, Ambien 10 mg at bedtime, #30 with 2 additional refills and clonazepam 1 mg #60, 2 additional refills. 5. The patient does voice concerns that he is worried that he will have increased pain. I told him to call if this does happen, but I continued to believe that he will stabilize on these current medications. Dr. Harper reinforced this today. 6. The patient will be seen in 3-month time period. He is in collaboration with Dr. Harper who was also present today. ��������������������������������������������� <ELECTRONICALLY SIGNED> ���������������������������������������� By: Catia Alva ��������������������������������������������� 08/27/18 1236 1326 01 Catia Alva /nt
== END ==
LOC: PAIN 06:49
DX: G89.4 Chronic pain syndrome (principal); M47.816 Spondylosis without myelopathy or radiculopathy, lumbar region; M19.90 Unspecified osteoarthritis, unspecified site; F41.8 Other specified anxiety disorders; I10 Essential (primary) hypertension; I48.91 Unspecified atrial fibrillation; G47.30 Sleep apnea, unspecified; Z79.891 Long term (current) use of opiate analgesic

== ENCOUNTER 2018-09-03 14:48 | Emergency (ER) | payer OTHER ==
[~2018-09-03] VITALS: Ht 172.7 cm; Wt 77.1 kg
[2018-09-03 15:04] LABS: ABSOLUTE NEUTROPHILS 1.7 thou/uL (1.4-8.2); BASOPHILS 1.1 % (0.0-2.0); EOSINOPHILS 3.9 % (0.0-3.0); HEMATOCRIT 41.7 % (42.0-52.0); HEMOGLOBIN 14.8 gm/dL (14.0-18.0); LYMPHOCYTES 38.5 % (24.0-44.0); MCH 30.7 pg (26.0-34.0); MCHC 35.6 g/dL (28.0-37.0); MCV 86.3 fL (80.0-100.0); MONOCYTES 8.8 % (1.0-8.0); PLATELET COUNT 139 thou/uL (150-400); POLYS 47.7 % (36.0-66.0); RBC 4.83 mil/uL (4.50-6.00); RDW 13.4 % (10.5-14.5); WBC 3.6 thou/uL (4.0-11.0)
[2018-09-03 15:46] LABS: ALBUMIN 4.2 g/dL (3.4-5.0); BUN 26 mg/dL (7-18); CALCIUM 9.5 mg/dL (8.5-10.1); CHLORIDE 96 mmol/L (98-107); CREATININE 1.2 mg/dL (0.7-1.3); GLUCOSE 127 mg/dL (74-106); POTASSIUM 3.7 mmol/L (3.5-5.1); SGOT 19 U/L (15-37); SGPT 26 U/L (30-65); SODIUM 135 mmol/L (136-145); TOTAL BILIRUBIN 0.8 mg/dL (<0.1-1.0); TROPONIN-I <0.06 ng/mL (<0.06)
[2018-09-03 15:51] LABS: ANION GAP 16 mmol/L (7-16); CO2 23 mmol/L (21-32)
[2018-09-03 16:51] VITALS: BP 154/72
--- NOTE | 2018-09-05 19:21 | EKG ---
[place] [address] [address] [facility] [place] [address] ELECTROCARDIOGRAM REPORT Name: TELLY EVANS Room #: DEP Sandie#: [id number] ������������������ Admission: 09/03/18 ������������������ Attend Phys: Discharge: 09/03/18 ������������������ Date of : 47 Report #: [id number] ����������������������������������������������������������������� [id number] THIS REPORT FOR: //name// [facility] ED Test Date: 2018-09-03 Test Time: 15:00:33 Pat Name: TELLY EVANS Department: Room: Gender: M Software Development Specialist: : 1945 Requested By: Xiomara Yoo Order Number: [id number] MD: Paulo Gusman Measurements Intervals [place] Rate: 79 P: GA: QRS: 19 QRSD: 92 T: 31 QT: 360 QTc: 413 Interpretive Statements Sinus rhythm first degree AV block PACs present Baseline artifact noted Early transition Compared to ECG 09/16/2014 13:09:49 No significant changes Electronically Signed On 09-05-2018 19:20:51 EDUCATIONAL TECHNOLOGIST by Paulo Gusman [email or web address] ��������������������������������������������� <ELECTRONICALLY SIGNED> ���������������������������������������� By: Paulo Gusman MD ��������������������������������������������� 09/05/18 1920 1500 Jillian Gusman MD /BABS
== END 2018-09-03 16:52 | disposition home or self-care (01) ==
LOC: ER 14:48
PROVIDERS: Student in an Organized Health Care Education/Training Program
DX: I47.1 Supraventricular tachycardia (principal); R42 Dizziness and giddiness; G25.81 Restless legs syndrome; I48.91 Unspecified atrial fibrillation; I10 Essential (primary) hypertension; E78.00 Pure hypercholesterolemia, unspecified; G47.00 Insomnia, unspecified; G47.30 Sleep apnea, unspecified; F41.9 Anxiety disorder, unspecified; M79.7 Fibromyalgia; Z88.8 Allergy status to other drugs, medicaments and biological substances; Z88.1 Allergy status to other antibiotic agents; Z87.442 Personal history of urinary calculi; Z86.73 Personal history of transient ischemic attack (TIA), and cerebral infarction without residual deficits

== ENCOUNTER → 2018-10-13 | Outpatient (CLI) | payer OTHER ==
[~2018-10-13] VITALS: Ht 172.7 cm; Wt 77.1 kg
[2018-10-13 07:13] VITALS: BP 105/61
[2018-10-13 07:14] LABS: ABSOLUTE NEUTROPHILS 1.1 thou/uL (1.4-8.2); BASOPHILS 1.6 % (0.0-2.0); EOSINOPHILS 6.3 % (0.0-3.0); HEMATOCRIT 40.8 % (42.0-52.0); LYMPHOCYTES 50.2 % (24.0-44.0); MCH 30.2 pg (26.0-34.0); MCHC 34.5 g/dL (28.0-37.0); MCV 87.6 fL (80.0-100.0); MONOCYTES 7.8 % (1.0-8.0); PLATELET COUNT 143 thou/uL (150-400); POLYS 34.1 % (36.0-66.0); RBC 4.65 mil/uL (4.50-6.00); RDW 13.1 % (10.5-14.5); WBC 3.3 thou/uL (4.0-11.0)
[2018-10-13 07:31] LABS: CALCIUM 9.3 mg/dL (8.5-10.1); CREATININE 1.1 mg/dL (0.7-1.3); POTASSIUM 3.8 mmol/L (3.5-5.1); PROTIME 10.7 Seconds (9.3-11.4)
[2018-10-13 07:37] LABS: ALBUMIN 3.9 g/dL (3.4-5.0); TOTAL BILIRUBIN 0.6 mg/dL (<0.1-1.0); TOTAL PROTEIN 6.7 g/dL (6.4-8.2)
--- NOTE | 2018-11-01 14:31 | P ---
[facility] [place] [address] [place] [address] PROCEDURE REPORT Name: TELLY EVANS Room #: REG HEIDY Sandie#: [id number] Admission: 10/13/18 ������������������ Attend Phys: Joseph Couch MD Discharge: ������������������ Date of : 47 Report #: [id number] THIS REPORT FOR: //name// CC: Brain Couch PREOPERATIVE DIAGNOSIS: Supraventricular tachycardia. POSTOPERATIVE DIAGNOSIS: Typical atrioventricular ely reentry tachycardia. PROCEDURES PERFORMED: 1. SVT ablation, CPT code 55101. 2. EP with left atrial pacing and recording, CPT code 43372. 3. Program and stimulation and pacing after IV drug infusion, CPT code 80837. 4. 3D mapping, CPT code 56741. HISTORY: The patient is a 73-year-old male with a history of SVT here for an ablation. ANESTHESIA: The patient underwent MAC anesthesia with no anesthesia related complications. DESCRIPTION OF PROCEDURE: The patient was brought to the EP laboratory in a fasting and sedated state, prepped and draped in a sterile fashion. I injected lidocaine to the bilateral groins and obtained access to the bilateral femoral veins placing an 8 and 6-Guatemalan short sheath in the right femoral vein and a 6 and 7-Guatem[place] short sheath in the left femoral vein. At baseline, the patient was in sinus rhythm. Catheters and sheaths were then positioned under fluoroscopy. I placed 3 quadripolar catheters at the HRA, His, and RV positions and a decapolar catheter into the coronary sinus, which was used for left atrial pacing and recording, baseline, the patient was in sinus rhythm with sinus cycle length of 580 milliseconds, P interval 200 milliseconds, QRS duration 80 milliseconds, QT interval 350 milliseconds, AH interval 105 milliseconds, and HV interval of 55 milliseconds. Atrial pacing was performed and SVT was easily inducible. The SVT had a cycle length of 350 milliseconds, septal VA time of 35 milliseconds and ventricular entrainment demonstrated the VAHV response consistent with an AV ely reentrant tachycardia. Actually, pacing the atrium was difficult to discern AV block as any atrial pacing would result in a single AV ely echoes. Therefore, AV block could not be determined. Ventricular pacing was performed and VA block was noted at 300 milliseconds and VA conduction was both midline and decremental. Next, isoproterenol was initiated at 1 mcg per minute and testing was continued. 3D MAPPING AND ABLATION: Next, I removed by HRA catheter and placed an SR0 sheath and a 4-mm Bios[employer] Rockwell ablation catheter into the right atrium and I created a detailed 3D map of the right atrium with specific emphasis of the His bundle region, slow pathway region and the coronary sinus ostium. I performed a [facility] [address] [place] [address] PROCEDURE REPORT Name: EVANSTELLY FREDIS Room #: REG HEIDY Hooper#: [id number] Admission: 10/13/18 ������������������ Attend Phys: Joseph Couch MD Discharge: ������������������ Date of : 47 Report #: [id number] total of three ablation lesions, which were 12 mm below the His bundle region where I had very nice slow junctional beats. As such, post-ablation testing was performed. Next, an EP study was performed and isoproterenol was reinitiated. When I would pace the atrium, I would still get these single AV ely echoes while performing atrial burst pacing. When I gave a single atrial extrastimuli, the patient did have a run of AVNRT that was three beats in duration. Therefore, I performed five additional ablation lesions in the region of the slow pathway. I did not get good junctionals with these solis, but I did definitely change the slow pathway region with these lesions. As such, isoproterenol was reinitiated 2 mcg per minute and AV block was noted at 320 milliseconds. Single atrial extrastimuli were delivered again and again had three beats of AVNRT. Therefore, I decided to perform additional ablation. At this time, I performed three additional lesions and now, I was about 10 mm below the His and on these last three lesions, I had again nice slow junctionals. The khna were only 10, but we had good temps. The temps maxed out at 55 degrees. At this point, I performed additional testing back on isoproterenol and AV block was noted at 410 milliseconds. AV ely ERP was noted at 300 milliseconds at a 500-millisecond basic drive cycle length and now, I was no longer getting these single AV ely echoes while atrially pacing nor did I get any further episodes of double or triple AV ely echoes. We tested for 30 minutes and we could no longer induce AVNRT and therefore, we were done. At post-ablation, the patient was in sinus rhythm with sinus cycle length of 660 milliseconds, HI interval 195 milliseconds, QRS duration 100 milliseconds, QT interval 400 milliseconds, AH interval 110 milliseconds, and HV interval 54 milliseconds. As such, all catheters and sheaths were pulled. Hemostasis was obtained and the patient awoke neurologically and hemodynamically intact with no complications and no significant bleeding. CONCLUSIONS: 1. Successful ablation of typical AV ely reentrant tachycardia. 2. Normal SA ely function. 3. Normal AV ely function. 4. Normal His-Purkinje function. 5. No other inducible arrhythmias on or off isoproterenol. ��������������������������������������������� <ELECTRONICALLY SIGNED> ���������������������������������������� By: Joseph Couch MD ��������������������������������������������� 11/01/18 1431 1318 5 oJseph Couch MD /chandra
== END | disposition home or self-care (01) ==
LOC: CATH 06:17
PROVIDERS: Internal Medicine Cardiovascular Disease
DX: I47.1 Supraventricular tachycardia (principal); I10 Essential (primary) hypertension; E78.5 Hyperlipidemia, unspecified; K21.9 Gastro-esophageal reflux disease without esophagitis; F41.9 Anxiety disorder, unspecified; M79.7 Fibromyalgia; E78.00 Pure hypercholesterolemia, unspecified; I48.91 Unspecified atrial fibrillation; Z98.890 Other specified postprocedural states; Z86.73 Personal history of transient ischemic attack (TIA), and cerebral infarction without residual deficits; Z87.19 Personal history of other diseases of the digestive system; Z82.49 Family history of ischemic heart disease and other diseases of the circulatory system; Z79.899 Other long term (current) drug therapy; Z87.442 Personal history of urinary calculi; Z79.01 Long term (current) use of anticoagulants; Z88.8 Allergy status to other drugs, medicaments and biological substances
CPT/HCPCS: 62110; 62900; 70005

== ENCOUNTER → 2018-11-26 | Outpatient (CLI) | payer OTHER ==
--- NOTE | ~2018-11-26 | P ---
[facility] [place] [address] [address] [place] [address] PROCEDURE REPORT Name: TELLY EVANS Room #: REG MIMIChris [place].#: [id number] Admission: 11/26/18 ������������������ Attend Phys: Joseph Couch MD Discharge: ������������������ Date of : 47 Report #: [id number] THIS REPORT FOR: //name// CC: Mart Couch PROCEDURE: implantable loop recorder insertion. PREOPERATIVE DIAGNOSIS: Palpitations. POSTOPERATIVE DIAGNOSIS: Palpitations. DESCRIPTION OF PROCEDURE: The patient underwent informed consent. We discussed the risks and benefits of the procedure. He understood these risks and was willing to proceed. He was prepped in a sterile fashion. I then injected lidocaine at the incision site. A small incision was made. The device was injected under the skin and a single layer of suture was delivered. Surgical glue was placed to the outer skin layer. There were no procedure-related complications. The implanted device was a [employer]irm, model #3500, serial #[id number]. R waves were 0.73 millivolts. The device was programmed to its nominal settings. CONCLUSIONS: Successful implantation of an implantable loop recorder. ��������������������������������������������� ���������������������������������������� By: ��������������������������������������������� 1310 0521 Joseph Couch MD /nt
[2018-11-26 14:01] VITALS: BP 128/68
== END | disposition home or self-care (01) ==
LOC: CATH 09:35
DX: R00.2 Palpitations (principal); Z98.890 Other specified postprocedural states; Z87.19 Personal history of other diseases of the digestive system; Z79.899 Other long term (current) drug therapy

== ENCOUNTER → 2018-12-02 | Outpatient (CLI) | payer OTHER ==
[~2018-12-02] VITALS: Ht 172.7 cm; Wt 77.6 kg
[2018-12-02 13:29] VITALS: BP 103/69
--- NOTE | 2018-12-02 13:47 | NUR ---
Pain Clinic Assessment: 1. History of Osteoarthritis: Not Applicable History of Rheumatoid Arthritis: Not Applicable 2. Height: 5 ft. 8 in. 172.7 cm. Weight: 171.0 lb. oz. 77.565 kg. Patient's BMI: 26.0 3. Vital Signs: BP: 103/69 Pulse: 83 Resp: 16 Temp: 02 Sat: 98 ECG Mon: 4. Pain Intensity: 7 5. Fall Risk: Dizziness: Y Needs help standing or walking: Y Fallen in the last 3 months: N Fall risk comments: 6. Patient on Blood Thinner: Dabigatran Etex (Pradaxa) 7. History of Hypertension: Y 8. Opioid Therapy greater than 6 weeks: Y Opiate Contract Signed: 11/22/15 9. Risk Assessment Tool Provided: mod risk-4Y 10. Functional Assessment Tool: 11. Recreational Drug Use: Never Drug Type: Tobacco Use: Never Smoker Tobacco Type: Amount or Packs/day: How Many Years: Alcohol Use: Yes Frequency: Daily Quant: 1
--- NOTE | 2018-12-06 07:53 | HPC ---
[facility] [place] [address] PAIN MANAGEMENT CONSULTATION Name: TELLY EVANS Room #: REG Chris Hooper#: [id number] Admission: 12/02/18 ������������������ Attend Phys: Catia Alva Discharge: ������������������ Date of : 46 Report #: [id number] THIS REPORT FOR: //name// CC: Catia Muñizkeith Steenanne DATE OF SERVICE: 12/02/2018 CHIEF COMPLAINT: Chronic pain with multiple pain generators. HISTORY OF PRESENT ILLNESS: This is a pleasant 73-year-old gentleman who returns to the pain clinic today for refill of his medications. He tells me that since we saw him in August, he has had multiple cardiac issues, resulting in a cardiac ablation and some changes of his medications. He tells me that they continued to monitor him with a new device that he has implanted. He tells me that he continues to have cardiac palpitations and it does record these, is not feeling his normal self quite today. He feels a little jittery and at times he does have chest palpitations still and his blood pressure is slightly low he thinks today. He tells me through all of this, his pain has been slightly increased with all the stress that he has been under. He does rate his pain a 7/10 today, mostly in his mid to lower back and his knees. It is a burning, stabbing, aching, constant pain, worse with walking and sitting. He does find the medications helpful, but since we had decreased his oral opioid medications in his last visit, he has noticed an increase in his pain. ALLERGIES: GABITRIL, SAVELLA, CLINDAMYCIN, GABAPENTIN AND GADOLINIUM. CURRENT MEDICATIONS: OxyContin 20 mg b.i.d., OxyIR 10 mg t.i.d., Ambien 10 mg at bedtime p.r.n., potassium 20 mEq daily, lisinopril 20 mg t.i.d., MiraLax daily, Mag-Ox daily, Synthroid 100 mcg daily and 200 mcg daily, omeprazole 20 mg b.i.d., Flomax daily, Pradaxa 150 mg b.i.d., Metamucil, hydrochlorothiazide, atorvastatin, hydralazine, Fioricet, Colace, multivitamin, and metoprolol p.r.n. PQRS: 1. The patient has multiple joint osteoarthritis and lumbar spondylosis. He denies any rheumatoid arthritis. 2. Height is 5 feet 8 inches, weight is 171. BMI is 26. 3. VITAL SIGNS: Blood pressure 103/69, pulse is 83, respirations 16, oxygen sat is 98. 4. Pain score 7/10. 5. The patient does have some dizziness. He does use a cane for walking, but he has not fallen in the last 3 months. 6. The patient is on Pradaxa and he does also take medicine for hypertension. 7. Opioid therapy is greater than 6 weeks; therefore, an opioid signed contract is on the chart. 8. Risk assessment tool is moderate. His functional assessment is 61/70. [address] [address] PAIN MANAGEMENT CONSULTATION Name: TELLY EVANS Room #: REG CLI MChris#: [id number] Admission: 12/02/18 ������������������ Attend Phys: Catia Alva Discharge: ������������������ Date of : 46 Report #: [id number] 9. Recreational drug use, he denies. He has never smoked and he does occasionally drink alcohol. We did check the prescription monitoring system. The patient is filling appropriately from Dr. Cliff Harper in a timely fashion. He does safeguard his medications and there is a drug screen on the chart in the past year that is appropriate for his medication usage. PHYSICAL EXAMINATION: GENERAL: This is a well-developed, well-nourished gentleman who appears his stated age of 73. He is alert and orientated and his affect is appropriate. He is a good historian. 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 He has normal vision on the right. Mucous membranes are moist. Hearing is adequate. MUSCULOSKELETAL: Complains of generalized diffuse tenderness in all of his joints, especially in his knees today. He walks with a slightly antalgic gait, but he was able to move from sitting to standing without difficulty. He does have a cane present with him that he uses at all times. His lower extremity strength judged to be 5/5 in all major muscle groups in his upper and lower extremities. The patient also does wear corrective shoes. IMPRESSION: 1. 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 2. Osteoarthritis. 3. Fibromyalgia. 4. History of depression and anxiety. 5. Atrial fibrillation and recent cardiac ablation. 6. Management of high risk medications under terms of written opioid agreement. We reviewed the fact that opiate medications are being used to provide analgesia adequate to support activities of daily living, not attempting to achieve a specific pain score on the 0-10 Visual Analog Scale. The current opiate medications are providing sufficient analgesia to allow the patient to participate in activities of daily living. The patient is not exhibiting any aberrant behavior suggestive of drug diversion. The patient is not having any adverse reactions to medications. The patient is not suffering from daytime somnolence or mental acuity changes. The patient is managing opiate-induced constipation with appropriate upxs-rgd-rwnpgdu agents and dietary considerations. The patient was counseled on concern for caution with operating a motor vehicle while using opiate medications. A physical exam was performed and the patient's functional status was evaluated. All patients with back pain were advised against the bed rest greater than 4 days and were advised to return to normal activities. Pain score assessment was noted and the treatment plan was reviewed with the patient. All current medications, both prescribed and OTC were reviewed and reconciled on the [address] [address] PAIN MANAGEMENT CONSULTATION Name: TELLY EVANS Room #: REG HEIDY Hooper#: [id number] Admission: 12/02/18 ������������������ Attend Phys: Catia Alva Discharge: ������������������ Date of : 46 Report #: [id number] electronic medical record. Tobacco screening was accomplished and smoking cessation was advised when indicated. BMI was noted and diet/exercise modification was recommended for all patients following outside normal parameters. I reviewed with the patient today their responsibilities to safeguard prescription medications, reviewed their responsibility to utilize medications only as prescribed by the physician. They are to seek and receive pain medications only from 1 physician group ( [facility]). They are to use 1 pharmacy and keep the clinic informed if they change pharmacies. Their responsibilities include making followup visits in a timely fashion and to avoid abrupt discontinuation of medication usage. Their responsibilities further include bringing their medications (bottles from the pharmacy with residual pills) to the visit for possible confirmation of pill counts and the patient understands it is their responsibility to submit to random drug screens to ensure both that the medications prescribed are present, and that no other controlled substances are present. All prescriptions provided today were generated electronically. PLAN: 1. We discussed treatment options with the patient today. From a pain standpoint, the patient's pain is slightly elevated than the last visit since we had decreased his opioid use. The patient will remain at his current level of medications this visit with no plans to decrease him in the future. He is on a high morphine milliequivalent dose according to the CDC guidelines of 105 is his morphine milliequivalent. This is a decrease as I stated from previous levels, I believe this is going to be about as low as we are able to get this patient, which is a significant decrease for him over the years. He is a chronic legacy patient of ours that has functioned very well on his higher level of medications and not having any side effects with over medication or constipation. Scripts given today for OxyContin 20 mg b.i.d., quantity 60 for today, 4 and 8-week release and OxyIR 10 mg t.i.d., #90 for today, 4 and 8-week release. 2. Scripts also given for clonazepam 1 mg b.i.d., quantity #60 with 2 additional refills, and Ambien 10 mg, #30 with [address] Harper did come and collaborate care today and see the patient and discussed his cardiac risks as well as his medication usage. 4. We did discuss the patient's blood pressure today since he thinks that it is quite low for him. I explained that he did have a similar blood pressure at his last visit as well, but to continue to monitor it at home. 5. The patient discharged with his and will call for an appointment as needed. ��������������������������������������������� <ELECTRONICALLY SIGNED> ���������������������������������������� By: Catia Alva ��������������������������������������������� 12/06/18 0753 [id number] Catia Alva /chandra
== END ==
LOC: PAIN 06:49
DX: M47.816 Spondylosis without myelopathy or radiculopathy, lumbar region (principal); G89.4 Chronic pain syndrome; M19.90 Unspecified osteoarthritis, unspecified site; M79.7 Fibromyalgia; I10 Essential (primary) hypertension; I48.91 Unspecified atrial fibrillation; F32.9 Major depressive disorder, single episode, unspecified; F41.9 Anxiety disorder, unspecified; Z79.899 Other long term (current) drug therapy; Z79.891 Long term (current) use of opiate analgesic; Z88.8 Allergy status to other drugs, medicaments and biological substances

== ENCOUNTER → 2019-02-28 | Outpatient (CLI) | payer OTHER ==
[~2019-02-28] VITALS: Ht 170.2 cm; Wt 73.8 kg
--- NOTE | ~2019-02-28 | HPC ---
[facility] [address] [place] [address] PAIN MANAGEMENT CONSULTATION Name: TELLY EVANS Room #: REG HEIDY Nikita.#: [id number] Admission: 02/28/19 Attend Phys: Cliff Harper MD Discharge: Date of : 46 Report #: [id number] THIS REPORT FOR: //name// CC: Brain Harper DATE OF SERVICE: 02/28/2019 Followup visit for chronic intractable pain. The patient is a longstanding patient of our clinic. I have been caring for the patient for over a decade. He has complex medical history, which is well outlined and documented throughout this medical record. He sees many, many physicians for a number of problems. He has had a number of complications related to treatments in the past and he spent much of today discussing his most recent issue atrial fibrillation, which has been treated with ablation. He continues to feel dizzy and lightheaded and palpitations. He has a device, which allows him to record his events. He is following with Dr. Diego and Dr. Couch who performed his ablation. He has been seeing us for chronic pain. Before discussing his pain, we did however discuss the fact that he is feeling somewhat lightheaded and dizzy. His vital signs today reflect bradycardia and hypotension. He has an irregular heart rate. It sounds to me as though he is chasing his tail a bit with the number of different cardiac antihypertensives including clonidine. He was unaware that there is a rebound hypertension. He also reports nocturnal elevations of blood pressure. I have strongly encouraged him to discuss this with Dr. Diego. I see him for diffuse pain. He complains of pain in his neck, shoulders, upper back, mid back, lower back, hips, knees down into his legs and neuropathic pain into his feet. He has plantar fasciitis as well. Multiple pain generators, would put it mildly. His average pain intensity is a 6/10 treated with medication, which will be discussed below. All medications have been reviewed and reconciled including my assessment of his antihypertensives. PQRS ASSESSMENT: 1. Diffuse osteoarthritis as noted as mentioned above, particularly involving knees, feet, spondylosis of the lumbar spine and cervical spondylosis. He complains of pain in his shoulders. 2. BMI is 25.5. 3. Vital signs today. Blood pressure 100/55, heart rate 45, respirations 16, O2 sat 97. 4. Pain intensity 6/10. [facility] [address] [place] [address] PAIN MANAGEMENT CONSULTATION Name: TELLY EVANS [id number] Admission: 02/28/19 Attend Phys: Cliff Harper MD Discharge: Date of : 46 Report #: [id number] 5. He is not at fall risk, although the dizziness is worrisome. He has not fallen in the last 3 months. 6. He is on Pradaxa. 7. He has history of hypertension. 8. He is on an opioid agreement, which has been signed on several occasions, most recently 3 years ago. We reviewed the terms of that agreement, the importance of safeguarding medication. He is grateful for the pain relief. He has an improvement in day-to-day function. He does not feel that he could function without opioid medication. 9. He has completed an opioid risk tool and scores at a moderate risk of 4/10. 10. Functional assessment score is high as typical for him 61/70. He has a great deal of somatization. 11. He denies use of tobacco, but drinks alcohol occasionally in social setting. PHYSICAL EXAMINATION: VITAL SIGNS: As noted above. GENERAL: He is pleasant, alert and oriented. He is conversant, does not show signs of depression or anxiety. He is a bit dramatic and pessimistic by nature. He always assumes that the worst will happen to him. He moves independently from sitting to standing position. His gait is mildly antalgic. HEENT: Reveals drooping left eye. Mucous membranes are moist. CHEST: Clear. CARDIAC: Rhythm is irregularly irregular and slow. No audible murmur. ABDOMEN: Soft and nontender. EXTREMITIES: He has tenderness in the shoulders, elbows, wrists, hips, knees and ankles. No focal weakness is noted in the upper or lower extremities. He has some tenderness across the plantar fascia bilaterally. IMPRESSION: 1. Chronic intractable pain with multiple pain generators including spondylosis, osteoarthritis, fibromyalgia, plantar fasciitis. 2. Atrial fibrillation with recent cardiac ablation. 3. Intermittent hypotension/hypertension, blood pressure instability with polypharmacy. 4. Management of high risk medications with terms of an opioid agreement. PLAN: 1. We will perform a urine drug screen today. 2. Review of opioid agreement. 3. Renewal of medications including OxyContin 20 mg b.i.d., oxycodone 10 mg t.i.d. for breakthrough, clonazepam 1 mg b.i.d., zolpidem 10 mg at bedtime. While this polypharmacy regimen is certainly the one that has some theoretical contraindications, he has been on these medicines for so long and stable helping to manage anxiety disorder and insomnia that I am reluctant to make changes at [facility] [address] [place] [address] PAIN MANAGEMENT CONSULTATION Name: TELLY EVANS Room #: REG CLChris SheltonXenia#: [id number] Admission: 02/28/19 Attend Phys: Cliff Harper MD Discharge: Date of : 46 Report #: [id number] this time. We will continue to try and use the lowest effective opioid dose in the future if we can, but at this point in time, I see no reason to make adjustments. We will continue to follow up closely. By: [id number] Cliff Harper MD /nt
[2019-02-28 11:06] VITALS: BP 100/55
--- NOTE | 2019-02-28 11:15 | NUR ---
Pain Clinic Assessment: 1. History of Osteoarthritis: knees,feet,back,neck shoulders History of Rheumatoid Arthritis: Not Applicable 2. Height: 5 ft. 7 in. 170.2 cm. Weight: 162.6 lb. oz. 73.755 kg. Patient's BMI: 25.5 3. Vital Signs: BP: 100/55 Pulse: 45 Resp: 16 Temp: 02 Sat: 97 ECG Mon: 4. Pain Intensity: 6 5. Fall Risk: Dizziness: N Needs help standing or walking: N Fallen in the last 3 months: N Fall risk comments: 6. Patient on Blood Thinner: Dabigatran Etex (Pradaxa) 7. History of Hypertension: Y 8. Opioid Therapy greater than 6 weeks: Y Opiate Contract Signed: 11/22/15 9. Risk Assessment Tool Provided: mod risk-4 10. Functional Assessment Tool: / 11. Recreational Drug Use: Never Drug Type: Tobacco Use: Never Smoker Tobacco Type: Amount or Packs/day: How Many Years: Alcohol Use: Yes Frequency: Quant:
== END ==
LOC: PAIN 06:54
DX: G89.4 Chronic pain syndrome (principal); M47.819 Spondylosis without myelopathy or radiculopathy, site unspecified; I48.91 Unspecified atrial fibrillation; I10 Essential (primary) hypertension; M79.7 Fibromyalgia; M72.2 Plantar fascial fibromatosis; Z79.891 Long term (current) use of opiate analgesic

== ENCOUNTER → 2019-05-30 | Outpatient (CLI) | payer OTHER ==
[~2019-05-30] VITALS: Ht 170.2 cm; Wt 72.6 kg
[~2019-05-30] MED LIST changes: +OMEPRAZOLE 20 M20 M1 PO; -OMEPRAZOLE20 MG PO; -SYNTHROID100 MC1 PO; +SYNTHROID200 MCG PO; +VOLTAREN GEL 1100 G2 TOP
[2019-05-30 12:34] VITALS: BP 135/80
--- NOTE | 2019-05-30 12:45 | NUR ---
Pain Clinic Assessment: 1. History of Osteoarthritis: knees,feet,back,neck shoulders History of Rheumatoid Arthritis: DENIES 2. Height: 5 ft. 7 in. 170.2 cm. Weight: 160.0 lb. oz. 72.576 kg. Patient's BMI: 25.1 3. Vital Signs: BP: 135/80 Pulse: 62 Resp: 15 Temp: 02 Sat: 97 ECG Mon: 4. Pain Intensity: 7 5. Fall Risk: Dizziness: N Needs help standing or walking: N Fallen in the last 3 months: N Fall risk comments: 6. Patient on Blood Thinner: Dabigatran Etex (Pradaxa) 7. History of Hypertension: Y 8. Opioid Therapy greater than 6 weeks: Y Opiate Contract Signed: 11/22/15 9. Risk Assessment Tool Provided: mod risk-4 10. Functional Assessment Tool: 11. Recreational Drug Use: Never Drug Type: Tobacco Use: Never Smoker Tobacco Type: Amount or Packs/day: How Many Years: Alcohol Use: Yes Frequency: Daily Quant: GIN AND JOSH
--- NOTE | 2019-05-31 09:30 | HPC ---
[facility] [address] [address] PAIN MANAGEMENT CONSULTATION Name: TELLY EVANS Room #: REG Chris Hooper#: [id number] Admission: 05/30/19 Attend Phys: Catia Alva Discharge: Date of : 46 Report #: [id number] THIS REPORT FOR: //name// CC: Catia Alva Brain Vera DATE OF SERVICE: 05/30/2019 CHIEF COMPLAINT: Left hip pain, chronic intractable pain. HISTORY OF PRESENT ILLNESS: This is a 74-year-old gentleman with a longstanding history of chronic pain from multiple pain generators all over his body. He reports that his worst pain today is in his left hip. If it becomes severe, it does radiate into his thigh and buttock. He is rating his pain score today at 7/10. He feels that his pain medications are beneficial in helping him to be as active as possible. He reports he is going to physical therapy for his left hip pain and continues his exercises at home. He is seeking names for orthopedic doctors today to see if they may be beneficial in helping relieve his pain with possible surgery, though he is unsure if he is to that point. The patient denies any problems with constipation as long as he takes his cfhi-civ-njjgrjh stool regimen and controls it also by diet. He does not have any problems with daytime sleepiness. Though he occasionally has problems with sleep at night, he finds the Ambien very beneficial to help with his insomnia. Today, he would like refills of all of his medications. ALLERGIES: ANTIDEPRESSANTS, EPIDURAL STEROIDS, SAVELLA, GABITRIL, CLINDAMYCIN, GABAPENTIN, and CONTRAST DYE. CURRENT LIST OF MEDICATIONS: Clonidine 0.2 mg b.i.d., OxyContin 20 mg b.i.d., OxyIR 10 mg 3 times a day, clonazepam 1 mg b.i.d. p.r.n., Zestril 20 mg t.i.d., MiraLax daily, Mag-Ox, Synthroid 200 mcg daily, omeprazole, Flomax, Pradaxa, Metamucil, Lipitor, hydralazine, Fioricet, multivitamin, and simethicone. PQRS: 1. He has diffuse osteoarthritis involving his knees, back, neck, and shoulders. Denies any rheumatoid arthritis. 2. Height is 5 feet 7 inches, weight is 160, and BMI is 25. 3. Vital signs, 135/80, pulse is 62, respirations 15, and oxygen sat is 97. 4. Pain score is 7/10. 5. Denies dizziness, does not need help walking or standing, has not fallen in the last 3 months. 6. The patient is on Pradaxa as well as taking medicines for hypertension. 7. Opioid therapy is greater than 6 weeks; therefore, an opioid signed contract is on the chart. 8. His risk assessment is low. Functional assessment is 59/70. [address] [address] PAIN MANAGEMENT CONSULTATION Name: EVANSTELLY FREDIS Room #: REG CLChris Hooper#: [id number] Admission: 05/30/19 Attend Phys: Catia Alva Discharge: Date of : 46 Report #: [id number] 9. Recreational drug use, he denies. He is not a smoker and occasionally drinks alcohol. According to the prescription monitoring system, the patient is filling appropriately through his medicines in a timely fashion. He is due this weekend for prescription refills. His current morphine milliequivalent is 105 per day. He is a Legacy patient of Dr. Cliff Encarnacion. We have weaned him down significantly on his medications that he is active and functions quite well on his current regimen. There is a random drug screen on the chart that is appropriate as well. PHYSICAL EXAMINATION: GENERAL: This is alert and orientated 74-year-old gentleman, who appears his stated age. He is an anxious person and is here present with his today. HEENT: Reveals drooping left eye. Mucous membranes are moist. Cardiac rhythm is irregular and slow. EXTREMITIES: He has tenderness in his shoulders, wrists, hips, knees, and ankles. He has tenderness in his left hip today with standing. I checked his flexion and extension of his hip and that caused mildly increased pain. He walks with a mildly antalgic gait. He raises from sitting to standing without difficulty. He does have a cane present, but is able to ambulate without this as well. IMPRESSION: 1. Chronic intractable pain with multiple pain generators including spondylosis, osteoarthritis, and fibromyalgia. 2. Atrial fibrillation with recent cardiac ablation. 3. Left hip pain with osteoarthritis. 4. Management of high-risk medications under terms of written opioid agreement. We reviewed the fact that opiate medications are being used to provide analgesia adequate to support activities of daily living, not attempting to achieve a specific pain score on the 0-10 Visual Analog Scale. The current opiate medications are providing sufficient analgesia to allow the patient to participate in activities of daily living. The patient is not exhibiting any aberrant behavior suggestive of drug diversion. The patient is not having any adverse reactions to medications. The patient is not suffering from daytime somnolence or mental acuity changes. The patient is managing opiate-induced constipation with appropriate thyw-rzw-qqghnee agents and dietary considerations. The patient was counseled on concern for caution with operating a motor vehicle while using opiate medications. PLAN: 1. We discussed treatment options with the patient today. He is having increased pain in his left hip. He has been going to physical therapy 2 times a week and continues his exercises at home. He is wondering about possible [facility] [address] [place] [address] PAIN MANAGEMENT CONSULTATION Name: CRISTINATELLY FREDIS Room #: REG [facility] [id number] Admission: 05/30/19 Attend Phys: Catia Alva Discharge: Date of : 46 Report #: [id number] We have given him the name of Dr. Brendon Zhong or Dr. Ortega and Dr. Colon, as well as Dr. Gar. The patient informs me that he will call one of those physicians for an opinion whether surgery is needed. 2. We discussed the fact that the patient is unable to take any anti-inflammatory oral medications due to his blood thinner, and he does not do well with steroid injections. I offered him Voltaren gel to apply topically to his hip several times a day. This was sent electronically to the pharmacy. He has found this useful on his hands and feet in the past. 3. We will send electronically oxycodone and OxyContin. OxyContin is 20 mg b.i.d. and oxycodone 10 mg t.i.d. for today, 4week an 8-week release. Again, this places the patient at 105 morphine milliequivalents. 4. We will refill his clonazepam and Ambien as well. The patient is instructed to take these sparingly. He has been on these benzodiazepines for quite some time and the clonazepam for his anxiety, but does report he does not take it on a daily basis. 5. The patient is seen in collaboration with Dr. Cliff Harper. The patient will return in 3 months as needed for his medications. <ELECTRONICALLY SIGNED> By: Catia Alva 05/31/19 0930 [id number] Catia Alva /chandra
== END ==
LOC: PAIN 06:49
DX: M16.12 Unilateral primary osteoarthritis, left hip (principal); M47.9 Spondylosis, unspecified; I48.91 Unspecified atrial fibrillation; Z79.891 Long term (current) use of opiate analgesic

== ENCOUNTER → 2019-08-29 | Outpatient (CLI) | payer OTHER ==
[~2019-08-29] VITALS: Ht 170.2 cm; Wt 72.1 kg
[~2019-08-29] MED LIST changes: +NARCAN4 MG NARES; +XARELTO20 MG PO
[2019-08-29 13:44] VITALS: BP 113/69
--- NOTE | 2019-08-29 14:04 | NUR ---
Pain Clinic Assessment: 1. History of Osteoarthritis: knees,feet,back,neck shoulders History of Rheumatoid Arthritis: DENIES 2. Height: 5 ft. 7 in. 170.2 cm. Weight: 159.0 lb. oz. 72.122 kg. Patient's BMI: 24.9 3. Vital Signs: BP: 113/69 Pulse: 75 Resp: 14 Temp: 02 Sat: 100 ECG Mon: 4. Pain Intensity: 6 5. Fall Risk: Dizziness: N Needs help standing or walking: N Fallen in the last 3 months: N Fall risk comments: 6. Patient on Blood Thinner: DARIANRLTO 7. History of Hypertension: Y 8. Opioid Therapy greater than 6 weeks: Y Opiate Contract Signed: 11/22/15 9. Risk Assessment Tool Provided: mod risk-4 10. Functional Assessment Tool: 11. Recreational Drug Use: Never Drug Type: Tobacco Use: Never Smoker Tobacco Type: Amount or Packs/day: How Many Years: Alcohol Use: Yes Frequency: Daily Quant: 2
--- NOTE | 2019-08-30 13:46 | HPC ---
[facility] [address] [place] [address] PAIN MANAGEMENT CONSULTATION Name: TELLY EVANS Room #: REG [facility] MSusie.#: [id number] Admission: 08/29/19 Attend Phys: Catia Alva Discharge: Date of : 47 Report #: [id number] THIS REPORT FOR: cc: Brain Vera MD,Brain Alva,Catia BAE ~ THIS REPORT FOR: //name// CC: Catia Vera DATE OF SERVICE: 08/29/2019 CHIEF COMPLAINT: Chronic intractable pain with multiple pain generators. HISTORY OF PRESENT ILLNESS: This is a 74-year-old gentleman who returns to the pain clinic today for a refill of his medication. He does have several medicines that he uses to take care of his various pain generators as well as his anxiety. We discussed his polypharmacy with all of his medications today. He reports his pain is in his neck and low back as well as all of his joints. He is also reporting a new pain in his thoracic area between his shoulder blades, rating his pain score a 6/10 today, worse with standing, walking, activity. He feels the medications as well as repositioning are very beneficial. We have attempted to decrease his meds in the past, but he has significant anxiety issues that he deals with that does play a part in trying to decrease his medications. He has been stable on this dose for quite some time along with his anxiety medications. The patient reports that he has recently been diagnosed with osteoporosis. His physician wants him to start Prolia, but the patient is leery about starting this medication due to side effects and is going to discuss this further with his doctor next week. ALLERGIES: GABITRIL, SAVELLA, CLINDAMYCIN, GABAPENTIN, GADOLINIUM. PQRS: 1. He has osteoarthritis that is diffuse involving his knees, back, neck and shoulders. Denies any rheumatoid arthritis. 2. Height is 5 feet 7 inches, weight is 157, BMI is 24. 3. Vital signs 113/69, pulse is 79, respirations 14, oxygen sat is 100. 4. Pain score is 6/10. 5. Denies dizziness, does not need help walking or standing, has not fallen in the last 3 months. 6. The patient is on Xarelto as well as medicines for hypertension. 7. Opioid therapy is greater than 6 weeks; therefore, an opioid signed contract is on the chart. Risk assessment is moderate. Functional assessment 61/70. [address] [address] PAIN MANAGEMENT CONSULTATION Name: TELLY EVANS Room #: REG [facility]#: [id number] Admission: 08/29/19 Attend Phys: Catia Alva Discharge: Date of : 47 Report #: [id number] 8. Recreational drug use, he denies. He is not a smoker and does drink two drinks of alcohol daily. According to the prescription monitoring system, the patient is filling appropriately for his medications. According to the CDC guidelines, his morphine mEq is 105 per day. Again, he is a legacy patient of Dr. Cliff Encarnacion. We have weaned him down on his medications quite significantly, though he is on opioids and benzodiazepine. He has been monitored quite carefully. We will prescribe a Narcan prescription in case an emergency arises for his to use. and spouse were instructed on this. PHYSICAL EXAMINATION: GENERAL: This is alert and anxious 74-year-old gentleman who appears his stated age, placing his current pain score today at 6/10. HEENT: Reveals drooping of the left eye. Mucosal membranes are moist. Vision is decreased in his right eye due to recent cataracts. EXTREMITIES AND MUSCULOSKELETAL: He has tenderness in his mid back between his shoulder blades, tender to the touch with no radiation today. Pain is located in his lumbar spine that radiates into his hips bilaterally. He raises from sitting to standing position without any difficulty. His lower extremity strength judged to be 5/5 in all major muscle groups. He does use a cane with ambulation. He has an antalgic gait. IMPRESSION: 1. Chronic intractable pain with multiple pain generators including spondylosis, osteoarthritis, and fibromyalgia. 2. Atrial fibrillation with recent cardiac ablation, on Xarelto. 3. Left hip pain with osteoarthritis. 4. Osteoporosis, recently diagnosed. 5. Management of high risk medications under terms of written opioid agreement. We reviewed the fact that opiate medications are being used to provide analgesia adequate to support activities of daily living, not attempting to achieve a specific pain score on the 0-10 Visual Analog Scale. The current opiate medications are providing sufficient analgesia to allow the patient to participate in activities of daily living. The patient is not exhibiting any aberrant behavior suggestive of drug diversion. The patient is not having any adverse reactions to medications. The patient is not suffering from daytime somnolence or mental acuity changes. The patient is managing opiate-induced constipation with appropriate nagb-jys-mcipihp agents and dietary considerations. The patient was counseled on concern for caution with operating a motor vehicle while using opiate medications. A physical exam was performed and the patient's functional status was evaluated. All patients with back pain were advised against the bed rest greater than 4 days and were advised to return to normal activities. Pain score assessment was [address] [address] PAIN MANAGEMENT CONSULTATION Name: TELLY EVANS [facility] [id number] Admission: 08/29/19 Attend Phys: Catia Alva Discharge: Date of : 47 Report #: [id number] noted and the treatment plan was reviewed with the patient. All current medications, both prescribed and OTC were reviewed and reconciled on the electronic medical record. Tobacco screening was accomplished and smoking cessation was advised when indicated. BMI was noted and diet/exercise modification was recommended for all patients following outside normal parameters. I reviewed with the patient today their responsibilities to safeguard prescription medications, reviewed their responsibility to utilize medications only as prescribed by the physician. They are to seek and receive pain medications only from 1 physician group ( [facility]). They are to use 1 pharmacy and keep the clinic informed if they change pharmacies. Their responsibilities include making followup visits in a timely fashion and to avoid abrupt discontinuation of medication usage. Their responsibilities further include bringing their medications (bottles from the pharmacy with residual pills) to the visit for possible confirmation of pill counts and the patient understands it is their responsibility to submit to random drug screens to ensure both that the medications prescribed are present, and that no other controlled substances are present. All prescriptions provided today were generated electronically. PLAN: 1. We discussed treatment options with the patient today. The patient finds his medications beneficial in reducing his pain, though is complaining of new pain between his shoulder blades. I encouraged him to try a lidocaine patch that he can buy crrp-bhh-rtwzqii to see if this is beneficial. This area is tender to the touch, but does not radiate outward. The patient has had no x-rays of this area, just tenderness that is fairly new pain generator. 2. I explained to the patient about his polypharmacy, taking opioids as well as benzodiazepine and sleeping aids. I encouraged the patient not to take all these medications at the same time, taken the liberty of writing a Narcan script today for this patient in case of an emergency. The patient has been stable on these meds for quite some time, but it is our practice to recommend Narcan to have present in the house when people are on high-dose opioids. Family agreed that it was a good idea to have it present in case the need arises. 3. We will have Dr. Cliff Harper prescribe his OxyIR 10 mg, #90; OxyContin 20 mg, #60; clonazepam 1 mg b.i.d., #60; Ambien 10 mg, #60. These will all be filled for 3 months and then the Narcan spray. 4. The patient is seen in collaboration with Dr. Cliff Harper. <ELECTRONICALLY SIGNED> By: Caita Alva 08/30/19 [id number] Catia Alva /nt
== END ==
LOC: PAIN 06:45
DX: M16.12 Unilateral primary osteoarthritis, left hip (principal); M79.7 Fibromyalgia; M81.0 Age-related osteoporosis without current pathological fracture; I48.91 Unspecified atrial fibrillation; M47.819 Spondylosis without myelopathy or radiculopathy, site unspecified; G89.29 Other chronic pain; Z88.1 Allergy status to other antibiotic agents; Z88.8 Allergy status to other drugs, medicaments and biological substances; Z79.01 Long term (current) use of anticoagulants

== ENCOUNTER → 2019-09-07 | Outpatient (CLI) | payer OTHER | LOC: SJCVC 11:58 | DX: I44.0 Atrioventricular block, first degree (principal); R94.31 Abnormal electrocardiogram [ECG] [EKG]; I47.1 Supraventricular tachycardia; I10 Essential (primary) hypertension; I48.0 Paroxysmal atrial fibrillation; G47.33 Obstructive sleep apnea (adult) (pediatric); G45.9 Transient cerebral ischemic attack, unspecified; E78.5 Hyperlipidemia, unspecified; G43.909 Migraine, unspecified, not intractable, without status migrainosus; G89.4 Chronic pain syndrome; Z79.01 Long term (current) use of anticoagulants; Z79.899 Other long term (current) drug therapy ==

== ENCOUNTER → 2019-12-01 | Outpatient (CLI) | payer OTHER ==
[~2019-12-01] VITALS: Ht 170.2 cm; Wt 71.2 kg
[~2019-12-01] MED LIST changes: +CALCIUM PO; +CATAPRES0.2 M1 PO; +FISH OIL 1,0001 EAC9 PO; +MOVANTIK12.5 MG PO; +VITAMIN D350 MCG PO
--- NOTE | ~2019-12-01 | HPC ---
[facility] [place] [address] [place] [address] PAIN MANAGEMENT CONSULTATION Name: TELLY EVANS Room #: REG [facility] RadhaMark Anthony.#: [id number] Admission: 12/01/19 Attend Phys: Cliff Harper MD Discharge: Date of : 47 Report #: [id number] THIS REPORT FOR: cc: Brain Vera MD,Brain Harper,Cliff Chin MD ~ CC: Brain Harper DATE OF SERVICE: 12/01/2019 CHIEF COMPLAINT: Chronic intractable pain. Multiple pain generators, polypharmacy. Chronic opioid management. HISTORY OF PRESENT ILLNESS: The patient returns to pain clinic in followup. We see him at 3-month intervals. He is a longstanding patient and has had multiple medical problems and comorbidities, which are well documented throughout this note. We see him to provide medications for intractable pain under terms of written opioid agreement, which was established over a decade ago. His first visit in our clinic was in 2003. He has remained on pain medications throughout that time. His medications are closely monitored through the prescription drug monitoring program and we have performed periodic urine drug screens to confirm use. He is highly tolerant to his medicines. He denies side effects other than constipation, which will be discussed below. He completed a functional score today reflecting his improvement in day-to-day activities with medication versus his score without. He scores his functional assessment at 61/70 without medication and 21/70 with. He feels significant improvement particularly at night when he has restless legs and pain in bed. He is able to sleep much more effectively. He denies any significant cognitive side effects. His primary side effect is constipation as would be expected by his polypharmacy as well as with his opioids. He has been using bulk laxatives in addition to stool softeners and laxative of a stimulant type. I have asked him to hold off on his fiber for a bit and see if that helps. I have also given him a trial prescription of Movantik 12.5 mg to take once daily. He has not been hospitalized for constipation, but has had several episodes where he had to be disimpacted. PQRS review describes multiple joint arthropathy and arthritis including bilateral knees, feet, cervical and lumbar spondylosis, bilateral shoulder pain. Vital signs: Blood pressure 149/89, heart rate 89, respirations 16, O2 sat 96. He is 5 feet 7 inches, 157 pounds, BMI of 24.6 and stable. He scores his pain intensity today is at 5/10. He has not fallen in the last 3 months. He is on [address] [address] PAIN MANAGEMENT CONSULTATION Name: TELLY EVANS Room #: REG Chris Hooper#: [id number] Admission: 12/01/19 Attend Phys: Cliff Harper MD Discharge: Date of : 47 Report #: [id number] blood thinner, Xarelto and has a history of hypertension. These medicines are provided through his primary care physician. He has an opioid agreement, which was initiated nearly 15 years ago and he has reestablished that agreement, re-reading it and reviewing it with us as recently as 2016. We discussed the agreement, the CDC guidelines, his morphine milligram equivalency and the importance of safeguarding medication at each visit. He is at moderate risk of addiction by the opioid risk tool. He denies use of tobacco. Despite his use of opioids, he occasionally consumes alcohol. I have discussed the interactions. He must show extreme caution in any use of alcohol and should consider abstinence. PHYSICAL EXAMINATION: VITAL SIGNS: As noted. GENERAL: He is wearing a mask because of COVID restrictions. 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 EOMs are intact. Oral mucous membranes are moist. He does not have a cough. He is afebrile. CHEST: Clear to auscultation. CARDIAC: Rhythm is regular. IMPRESSION: 1. Chronic intractable pain with primarily osteoarthritis as pain generator. 2. Management of high risk medication under terms of written opioid agreement. 3. Atrial fibrillation history, status post ablation. 4. Recent diagnosis osteoporosis. 5. History of fibromyalgia. 6. Anxiety disorder. PLAN: I renewed his medications under terms of our agreement. I have discussed with him the interaction of clonazepam with opioids. He has taken them safely for many years at current dose and given his history, I think it is reasonable. He must carefully safeguard all medications. Followup visit scheduled in our clinic in 3 months. Urine drug screen at followup visit. By: [id number] Cliff Harper MD /nt
[2019-12-01 13:35] VITALS: BP 145/89
--- NOTE | 2019-12-01 13:43 | NUR ---
Pain Clinic Assessment: 1. History of Osteoarthritis: knees,feet,back,neck shoulders History of Rheumatoid Arthritis: DENIES 2. Height: 5 ft. 7 in. 170.2 cm. Weight: 157.0 lb. oz. 71.215 kg. Patient's BMI: 24.6 3. Vital Signs: BP: 145/89 Pulse: 89 Resp: 16 Temp: 02 Sat: 96 ECG Mon: 4. Pain Intensity: 5 5. Fall Risk: Dizziness: Y Needs help standing or walking: N Fallen in the last 3 months: N Fall risk comments: 6. Patient on Blood Thinner: DARIANRLTO 7. History of Hypertension: Y 8. Opioid Therapy greater than 6 weeks: Y Opiate Contract Signed: 11/22/15 9. Risk Assessment Tool Provided: mod risk-4 10. Functional Assessment Tool: 11. Recreational Drug Use: Never Drug Type: Tobacco Use: Never Smoker Tobacco Type: Amount or Packs/day: How Many Years: Alcohol Use: Yes Frequency: Daily Quant: 1
== END ==
LOC: PAIN 06:52
DX: G89.29 Other chronic pain (principal); F11.20 Opioid dependence, uncomplicated; Z79.899 Other long term (current) drug therapy

== ENCOUNTER → 2020-03-01 | Outpatient (CLI) | payer OTHER ==
[~2020-03-01] VITALS: Ht 172.7 cm; Wt 76.2 kg
[~2020-03-01] MED LIST changes: +CLONIDINE1 EAC1 TRANSDERM; +LEVO-T100 MCG PO; +VITA; +VITAMIN D3 PO; +VITAMIN K PO; +VITAMIN K240 MCG PO; +strontium citrate PO
--- NOTE | ~2020-03-01 | HPC ---
[facility] [address] [place] [address] PAIN MANAGEMENT CONSULTATION Name: TELLY EVANS Room #: REG [facility] MSusie.#: [id number] Admission: 03/01/20 Attend Phys: Catia Alva Discharge: Date of : 47 Report #: [id number] THIS REPORT FOR: cc: Brain Vera MD,Brain Alva,Catia BAE ~ CC: Catia Harper MD DATE OF SERVICE: 03/01/2020 CHIEF COMPLAINT: Chronic intractable pain with multiple pain generators. HISTORY OF PRESENT ILLNESS: This is a 75-year-old gentleman who returns to the pain clinic today for refill medication and management. He is a longstanding opioid patient of Dr. Cliff Harper who has been stable on his medicines for quite some time despite being on a greater than 90 morphine mEq. Today, he is reporting a pain score of 6/10 stating most of his pain is in his low back, stating he is having some increasing pain in his upper thoracic region. He also has bilateral hand, knee and shoulder pain. He states he has burning, tingling and sharp pain that is worse with prolonged standing, sitting or any activity. He feels as long as he takes his medication and repositions himself he does fairly well, but does complain of increasing pain at night that is waking him. The patient reports to me he is on several new supplements. His DEXA scan was slightly elevated and he was not in favor of starting any medicine for osteoporosis, so therefore he had researched several supplements and it was agreed upon by his primary doctors to trial multiple supplements to see if that could core maker helper him instead of taking osteoporosis medications. ALLERGIES: GABITRIL, SAVELLA, CLINDAMYCIN, GABAPENTIN, GADOLINIUM. PATIENT'S LIST OF MEDICATIONS: OxyContin 20 mg b.i.d., OxyIR 10 mg t.i.d., ____, vitamin K, strontium citrate, levothyroxine, clonidine 0.1 mg patch weekly, diclofenac p.r.n., clonazepam 1 mg b.i.d., vitamin D3, fish oil, calcium, Ambien, Xarelto, lisinopril, MiraLax, magnesium, omeprazole, Flomax, Lipitor, hydralazine, Fioricet, multivitamin and Unisom. PQRS: 1. He has diffuse osteoarthritis in his knees, shoulders, back, neck and shoulders. Denies any rheumatoid arthritis. 2. Height is 5 feet 8 inches, weight is 168, BMI is 25. 3. Vital signs; blood pressure 117/65, pulse is 67, respirations 16, oxygen sat is 97%. 4. Pain score is 6/10. [facility] [address] [place] [address] PAIN MANAGEMENT CONSULTATION Name: TELLY EVANS Room #: REG CLI Lisa#: [id number] Admission: 03/01/20 Attend Phys: Catia Alva Discharge: Date of : 47 Report #: [id number] 5. Denies dizziness, does not need help walking or standing, has not fallen in the last 3 months. 6. The patient is on Xarelto as well as medicines for hypertension. 7. Opioid therapy is greater than 6 weeks; therefore, an opioid signed contract is on the chart. Risk assessment tool is moderate. Functional assessment . 8. Recreational drug use, he denies. He is not a smoker and occasionally drinks alcohol. According to the prescription monitoring system, the patient is filling appropriately. He is past due to fill his medicines by a few days. We will check a random drug screen on this patient today. According to the CDC guidelines, his morphine milliequivalent is 100 and he has been stable on these meds for quite some time. PHYSICAL EXAMINATION: GENERAL: This is alert and orientated gentleman who appears his stated age, placing his current pain score at 6/10 today. 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 Extraocular muscles are intact. Oral mucosa is moist. He is wearing a mask. MUSCULOSKELETAL: He walks with a slightly antalgic gait. Complains of tenderness in multiple joints, especially in his bilateral hips. Tenderness in his thoracic spine that does radiate into his lumbar spine. Lower extremity strength judged to be 5/5 in all major muscle groups. IMPRESSION: 1. Chronic intractable pain with multiple pain generators including spondylosis, osteoarthritis, and fibromyalgia. 2. Atrial fibrillation, on Xarelto. 3. Osteoporosis, recently diagnosed on supplements. Management of high risk medications under terms of written opioid agreement. 4. Anxiety disorder. 5. Management of high risk medications under terms of written opioid agreement. We reviewed the fact that opiate medications are being used to provide analgesia adequate to support activities of daily living, not attempting to achieve a specific pain score on the 0-10 Visual Analog Scale. The current opiate medications are providing sufficient analgesia to allow the patient to participate in activities of daily living. The patient is not exhibiting any aberrant behavior suggestive of drug diversion. The patient is not having any adverse reactions to medications. The patient is not suffering from daytime somnolence or mental acuity changes. The patient is managing opiate-induced constipation with appropriate jffw-ihb-gizazvb agents and dietary considerations. The patient was counseled on concern for caution with operating a motor vehicle while using opiate medications. [facility] [address] [place] [address] PAIN MANAGEMENT CONSULTATION Name: TELLY EVANS Room #: REG CLI MSusie.#: [id number] Admission: 03/01/20 Attend Phys: Catia Alva Discharge: Date of : 47 Report #: [id number] A physical exam was performed and the patient's functional status was evaluated. All patients with back pain were advised against the bed rest greater than 4 days and were advised to return to normal activities. Pain score assessment was noted and the treatment plan was reviewed with the patient. All current medications, both prescribed and OTC were reviewed and reconciled on the electronic medical record. Tobacco screening was accomplished and smoking cessation was advised when indicated. BMI was noted and diet/exercise modification was recommended for all patients following outside normal parameters. I reviewed with the patient today their responsibilities to safeguard prescription medications, reviewed their responsibility to utilize medications only as prescribed by the physician. They are to seek and receive pain medications only from 1 physician group ( [facility]). They are to use 1 pharmacy and keep the clinic informed if they change pharmacies. Their responsibilities include making followup visits in a timely fashion and to avoid abrupt discontinuation of medication usage. Their responsibilities further include bringing their medications (bottles from the pharmacy with residual pills) to the visit for possible confirmation of pill counts and the patient understands it is their responsibility to submit to random drug screens to ensure both that the medications prescribed are present, and that no other controlled substances are present. All prescriptions provided today were generated electronically. PLAN: 1. We discussed treatment options with the patient today. The patient states that he did not start the Movantik that Dr. Cliff Harper prescribed in November for his opioid-induced constipation and said he is trying MiraLax, Senokot and milk of magnesia. He feels that this is managing his constipation issues. 2. The patient states he is having increasing pain in the middle of the night. Occasionally, this does wake him. I encouraged him to alter the time that he does take his medicine, changing some of his OxyIR breakthrough pain medicine from the morning to the middle of the night and see if that is beneficial and also adding an extra strength Tylenol if he needs to. The patient verbalizes understanding. 3. We will have Dr. Cliff Harper send his OxyContin 20 mg b.i.d., #60 and OxyIR 10 mg, #90, for 3 months as well as Ambien, and clonazepam for 3 months total. 4. The patient is not needing Voltaren gel presently. 5. We will collect a random drug screen on this patient today. The patient is seen today in collaboration with Dr. Cliff Harper who did see the patient as well. By: [id number] Catia Alva /chandra
[2020-03-01 12:46] VITALS: BP 117/65
--- NOTE | 2020-03-01 12:49 | NUR ---
Pain Clinic Assessment: 1. History of Osteoarthritis: knees,feet,back,neck shoulders History of Rheumatoid Arthritis: DENIES 2. Height: 5 ft. 8 in. 172.7 cm. Weight: 168.0 lb. oz. 76.204 kg. Patient's BMI: 25.6 3. Vital Signs: BP: 117/65 Pulse: 67 Resp: 16 Temp: 02 Sat: 97 ECG Mon: 4. Pain Intensity: 6 5. Fall Risk: Dizziness: N Needs help standing or walking: N Fallen in the last 3 months: N Fall risk comments: 6. Patient on Blood Thinner: DARIANRLTO 7. History of Hypertension: Y 8. Opioid Therapy greater than 6 weeks: Y Opiate Contract Signed: 11/22/15 9. Risk Assessment Tool Provided: mod risk-4 10. Functional Assessment Tool: 11. Recreational Drug Use: Never Drug Type: Tobacco Use: Never Smoker Tobacco Type: Amount or Packs/day: How Many Years: Alcohol Use: Yes Frequency: Quant:
== END ==
LOC: PAIN 06:50
PROVIDERS: ATTEND Clinical Nurse Specialist Adult Health
DX: G89.4 Chronic pain syndrome (principal); M79.10 Myalgia, unspecified site; M19.90 Unspecified osteoarthritis, unspecified site; M81.0 Age-related osteoporosis without current pathological fracture; I48.91 Unspecified atrial fibrillation; F11.20 Opioid dependence, uncomplicated

== ENCOUNTER → 2020-03-09 | Outpatient (CLI) | payer OTHER | LOC: SJCVCIMAG 07:34 | PROVIDERS: ATTEND Internal Medicine | DX: R94.31 Abnormal electrocardiogram [ECG] [EKG] (principal); I44.0 Atrioventricular block, first degree; R00.1 Bradycardia, unspecified; I47.1 Supraventricular tachycardia; I48.0 Paroxysmal atrial fibrillation; I10 Essential (primary) hypertension; G47.33 Obstructive sleep apnea (adult) (pediatric); G45.9 Transient cerebral ischemic attack, unspecified; E78.5 Hyperlipidemia, unspecified; G89.4 Chronic pain syndrome; Z79.01 Long term (current) use of anticoagulants; Z79.899 Other long term (current) drug therapy ==

== ENCOUNTER → 2020-06-04 | Outpatient (CLI) | payer OTHER ==
--- NOTE | 2020-06-05 14:08 | HPC ---
[facility] [place] [address] PAIN MANAGEMENT CONSULTATION Name: TELLY EVANS Room #: REG [facility] MSusie.#: [id number] Admission: 06/04/20 Attend Phys: Catia Alva Discharge: Date of : 47 Report #: [id number] THIS REPORT FOR: cc: Brain Vera MD,Brain Alva,Catia BAE ~ CC: Catia aHrper MD DATE OF SERVICE: 06/04/2020 CHIEF COMPLAINT: Chronic intractable pain with multiple pain generators. HISTORY OF PRESENT ILLNESS: This is a Telemed appointment and I am speaking with the patient via telephone from 12:35-12:55 due to the COVID pandemic. The patient is very nervous about coming out and he has consented to this Telemed appointment. The patient is reporting a pain score of 5/10 today, worse in his lower back. He reports mornings are worse for him before he takes his pain pills, though at times he does have difficulty sleeping and has changed how he takes his oxycodone throughout the day and has found this slightly helpful. The patient reports that his pain is a burning, tingling, occasionally sharp pain in his neck, shoulders, back, knees that is chronic and very diffuse. He finds the oxycodone does cause some constipation issues and takes Senokot-S as well as MiraLax on a daily basis. The patient reports he continues to have doctor's appointments regarding his osteoporosis. He is taking many supplements, so he does not have to take any prescription medications. He will follow up with those doctors next year per his report. ALLERGIES: GABITRIL, SAVELLA, CLINDAMYCIN, AND GABAPENTIN. CURRENT LIST OF MEDICATIONS: MiraLax, Mag-Ox, Synthroid, omeprazole, Flomax, Lipitor, hydralazine, Fioricet, multivitamin, Gas-X, milk of magnesia, OxyContin, oxycodone, multiple vitamins, clonazepam, Voltaren gel, Ambien, Xarelto, Zestril, and clonazepam. PQRS: 1. He has a history of diffuse osteoarthritis affecting multiple joints and denies any rheumatoid arthritis. Height is 5 feet 8 inches, weight is 168, BMI is 25. Vital signs are deferred. Pain score is 5/10. Fall risk. Denies dizziness, does not need help walking or standing, has not fallen in the last 3 months. The patient is on Xarelto as well as medicines for hypertension. His opioid therapy is greater than 6 weeks; therefore, an opioid signed contract is on the chart. Risk assessment is moderate. Functional assessment 61/[address] [address] PAIN MANAGEMENT CONSULTATION Name: TELLY EVANS Room #: REG CLChris Hooper#: [id number] Admission: 06/04/20 Attend Phys: Catia Alva Discharge: Date of : 47 Report #: [id number] 2. Recreational drug use, he denies. He is not a smoker and occasionally drinks alcohol. According to the prescription monitoring system, he is filling appropriately in a timely fashion. His morphine mEq is 106, though he is closely monitored by our physician. PHYSICAL EXAMINATION: Deferred. This is a Telemed appointment. He reports pain across his lumbosacral region that does affect him, especially in the morning. Pain is also present in multiple joints. IMPRESSION: 1. Chronic intractable pain with multiple pain generators including spondylosis, osteoarthritis, and fibromyalgia. 2. Atrial fibrillation, on Xarelto. 3. Osteoporosis. 4. Anxiety disorder. 5. Management of high risk medications under terms of written opioid agreement. We reviewed the fact that opiate medications are being used to provide analgesia adequate to support activities of daily living, not attempting to achieve a specific pain score on the 0-10 Visual Analog Scale. The current opiate medications are providing sufficient analgesia to allow the patient to participate in activities of daily living. The patient is not exhibiting any aberrant behavior suggestive of drug diversion. The patient is not having any adverse reactions to medications. The patient is not suffering from daytime somnolence or mental acuity changes. The patient is managing opiate-induced constipation with appropriate uowm-gzo-mynbvmh agents and dietary considerations. The patient was counseled on concern for caution with operating a motor vehicle while using opiate medications. A physical exam was performed and the patient's functional status was evaluated. All patients with back pain were advised against the bed rest greater than 4 days and were advised to return to normal activities. Pain score assessment was noted and the treatment plan was reviewed with the patient. All current medications, both prescribed and OTC were reviewed and reconciled on the electronic medical record. Tobacco screening was accomplished and smoking cessation was advised when indicated. BMI was noted and diet/exercise modification was recommended for all patients following outside normal parameters. I reviewed with the patient today their responsibilities to safeguard prescription medications, reviewed their responsibility to utilize medications only as prescribed by the physician. They are to seek and receive pain medications only from 1 physician group ([facility]). They are to use 1 pharmacy and keep the clinic informed if they change pharmacies. Their [facility] [address] [place] [address] PAIN MANAGEMENT CONSULTATION Name: TELLY EVANS Room #: REG CLI Sandie#: [id number] Admission: 06/04/20 Attend Phys: Catia Alva Discharge: Date of : 47 Report #: [id number] responsibilities include making followup visits in a timely fashion and to avoid abrupt discontinuation of medication usage. Their responsibilities further include bringing their medications (bottles from the pharmacy with residual pills) to the visit for possible confirmation of pill counts and the patient understands it is their responsibility to submit to random drug screens to ensure both that the medications prescribed are present, and that no other controlled substances are present. All prescriptions provided today were generated electronically. PLAN: 1. We discussed treatment options with the patient today. He finds his medications very beneficial in helping him be as active as he would like. We will continue him on his OxyContin 20 mg b.i.d. and OxyIR 10 mg t.i.d. These will be sent electronically by Dr. Harper to his pharmacy. We will continue him on his Ambien and clonazepam as well and these will be sent today for refills. 2. The patient will follow up in 3 months. At that time, we will determine if it is a Telemed appointment for an in-person appointment due to the COVID numbers. The patient is agreeable with that. He will speak to nurses when making the appointment. The patient is seen today in collaboration with Dr. Cliff Harper for this Telemed appointment. <ELECTRONICALLY SIGNED> By: Catia Alva 06/05/20 1408 [id number] [id number] Catia Alva /chandra
== END ==
LOC: PAIN 06:49 → TELEPC 06:49 → PAIN 13:32
PROVIDERS: ATTEND Clinical Nurse Specialist Adult Health
DX: G89.29 Other chronic pain (principal); F41.9 Anxiety disorder, unspecified; M19.90 Unspecified osteoarthritis, unspecified site; M79.7 Fibromyalgia; F11.20 Opioid dependence, uncomplicated; I48.91 Unspecified atrial fibrillation; Z88.8 Allergy status to other drugs, medicaments and biological substances; Z79.899 Other long term (current) drug therapy

== ENCOUNTER → 2020-08-27 | Outpatient (CLI) | payer OTHER ==
[~2020-08-27] VITALS: Ht 172.7 cm; Wt 76.7 kg
[~2020-08-27] MED LIST changes: +CLARITIN10 M3 PO; +POTASSIUM CITR10 ME1 PO
[2020-08-27 12:40] VITALS: BP 130/83
--- NOTE | 2020-08-27 12:56 | NUR ---
Pain Clinic Assessment: 1. History of Osteoarthritis: knees,feet,back,neck shoulders History of Rheumatoid Arthritis: DENIES 2. Height: 5 ft. 8 in. 172.7 cm. Weight: 169.2 lb. oz. 76.749 kg. Patient's BMI: 25.7 3. Vital Signs: BP: 130/83 Pulse: 83 Resp: 16 Temp: 02 Sat: 100 ECG Mon: 4. Pain Intensity: 5 5. Fall Risk: Dizziness: N Needs help standing or walking: N Fallen in the last 3 months: N Fall risk comments: 6. Patient on Blood Thinner: XARLTO 7. History of Hypertension: Y 8. Opioid Therapy greater than 6 weeks: Y Opiate Contract Signed: 11/22/15 9. Risk Assessment Tool Provided: mod risk-4 10. Functional Assessment Tool: 11. Recreational Drug Use: Never Drug Type: Tobacco Use: Never Smoker Tobacco Type: Amount or Packs/day: How Many Years: Alcohol Use: Yes Frequency: Daily Quant: 2
--- NOTE | 2020-08-28 09:08 | HPC ---
[facility] [address] [address] PAIN MANAGEMENT CONSULTATION Name: TELLY EVANS Room #: REG Chris Hooper#: [id number] Admission: 08/27/20 Attend Phys: Catia Alva Discharge: Date of : 47 Report #: [id number] THIS REPORT FOR: cc: Brain Vera MD, Jonathan MD Hocker,Catia BAE ~ DATE OF SERVICE: 08/27/2020 CHIEF COMPLAINT: Chronic intractable pain with multiple pain generators. HISTORY OF PRESENT ILLNESS: This is a 75-year-old gentleman who returns to the pain clinic today for refill of his opioid medications. Today, he is reporting he is doing quite well, rating his pain as 5/10. He does report the last few weeks with weather changes, his pain has increased, especially in all of his joints. Since the weather has improved, he feels like his pain is well controlled again. He has multiple pain generators of neck, low back, hips, knees, shoulders, feet and hands and he describes it as a burning tingly sensation with any activity. He reports he is having problems with his piriformis muscles bilaterally went to physical therapy and is now continuing his stretching exercises at home, at times, this stretches do aggravate his low back pain. He denies any daytime somnolence as a result of his opioid and benzodiazepine medications and is closely monitored here in the clinic and followed very closely. The patient reports he has had his first COVID vaccination and is scheduled on 09/15/2020. He is thankful that he was able to have his first one due to his many comorbidities. ALLERGIES: GABITRIL, SAVELLA, CLINDAMYCIN, GABAPENTIN AND GADOLINIUM. CURRENT LIST OF MEDICATIONS: Claritin, potassium citrate, metoprolol, Catapres, Narcan, OxyContin 20 mg, Ambien, OxyIR, clonazepam, Fida, vitamin K2, strontium citrate, levothyroxine, clonidine and diclofenac gel, fish oil, calcium, Xarelto, lisinopril, MiraLax, magnesium, Flomax, Lipitor, hydralazine, Fioricet, Ambien, Gas-X and Unisom. PQRS: 1. He has diffuse osteoarthritis in multiple joints and denies any rheumatoid arthritis. 2. Height is 5 feet 8 inches, weight is 169, BMI is 25. 3. Vital signs: Blood pressure 130/83, pulse is 83, respirations 16, oxygen sat is 100. 4. Pain score is 5/10. 5. Denies dizziness, does not need help walking or standing, has not fallen in the last [address] [address] PAIN MANAGEMENT CONSULTATION Name: TELLY EVANS Room #: REG HEIDY Hooper#: [id number] Admission: 08/27/20 Attend Phys: Catia Alva Discharge: Date of : 47 Report #: [id number] 6. The patient is on Xarelto as well as medication for hypertension. Opioid therapy is greater than 6 weeks; therefore, an opioid signed contract is on the chart. Risk assessment is moderate. Functional assessment 61/70. 7. Recreational drug use, he denies. He is not a smoker and occasionally drinks alcohol. According to the prescription monitoring system, he is due to fill his medications later this week. His morphine mEq is 113. He does take opioids and benzodiazepines and is closely monitored. There is a drug screen on the chart that is appropriate for his medications. PHYSICAL EXAMINATION: GENERAL: This is alert and orientated and slightly depressed with a flat affect 75-year-old gentleman who appears his stated age, rating his pain score today at 5/10. 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 His EOMs are intact. Oral mucosa is moist. He has a mask on as well as glasses. MUSCULOSKELETAL: Discomfort in his low back that radiates into his piriformis muscles and down into his hips bilaterally, greater on the left than the right. Tenderness in his mid back between his shoulder blades. Lower extremity strength are symmetrical at 5/5. He has an antalgic gait. He has corrective shoes that he wears. IMPRESSION: 1. Chronic intractable pain with multiple pain generators including spondylosis, osteoarthritis, and fibromyalgia. 2. Atrial fibrillation, on Xarelto. 3. Osteoporosis. 4. Anxiety disorder. 5. Management of high risk medications under terms of written opioid agreement. PLAN: 1. We discussed treatment options with the patient today. Overall, he believes the OxyContin is beneficial in controlling his pain. He did change how he takes his breakthrough pain medicine to utilize more at bedtime when his pain is increased and has found that to be beneficial. 2. The patient is scheduled for his COVID vaccine on 09/15/2020. He was worried about the side effects that he has been hearing people have associated to their second dose. I encouraged him to take Tylenol every 6-8 hours after his injection and repeat this every 6-8 hours for 24 hours also utilize ice to his injection site. 3. We did discuss his OxyContin that was approved by prior authorization by his insurance company for one year, but he is worried that soon they will not cover that medication, we talked about rotating him to [facility] and discussed this in depth today. The patient is willing to try that when he may need to in the future. [facility] [address] [place] [address] PAIN MANAGEMENT CONSULTATION Name: CRISTINATELLY FREDIS [id number] Admission: 08/27/20 Attend Phys: Catia Alva Discharge: Date of : 47 Report #: [id number] 4. Scripts will be sent for OxyContin, oxycodone, Ambien and clonazepam. These will be sent under Dr. Priyank Cruz who is covering for Dr. Harper tomorrow. 5. The case was discussed with Dr. Harper via telephone today and collaborated care. <ELECTRONICALLY SIGNED> By: Catia Alva 08/28/20 0908 [id number] [id number] Catia Alva /nt
== END ==
LOC: PAIN 06:58
PROVIDERS: ATTEND Clinical Nurse Specialist Adult Health
DX: G89.4 Chronic pain syndrome (principal); M85.88 Other specified disorders of bone density and structure, other site; M79.10 Myalgia, unspecified site; I48.91 Unspecified atrial fibrillation; M81.0 Age-related osteoporosis without current pathological fracture; F41.9 Anxiety disorder, unspecified; F11.20 Opioid dependence, uncomplicated; Z88.8 Allergy status to other drugs, medicaments and biological substances; Z79.899 Other long term (current) drug therapy

== ENCOUNTER → 2020-09-06 | Outpatient (CLI) | payer OTHER | LOC: SJCVC 13:50 | PROVIDERS: ATTEND Internal Medicine | DX: I44.0 Atrioventricular block, first degree (principal); I47.1 Supraventricular tachycardia; I48.0 Paroxysmal atrial fibrillation; I10 Essential (primary) hypertension; G47.33 Obstructive sleep apnea (adult) (pediatric); G45.9 Transient cerebral ischemic attack, unspecified; E78.5 Hyperlipidemia, unspecified; G89.4 Chronic pain syndrome; G43.909 Migraine, unspecified, not intractable, without status migrainosus; M81.0 Age-related osteoporosis without current pathological fracture; Z95.0 Presence of cardiac pacemaker; Z88.8 Allergy status to other drugs, medicaments and biological substances; Z79.01 Long term (current) use of anticoagulants; Z79.899 Other long term (current) drug therapy; Z82.49 Family history of ischemic heart disease and other diseases of the circulatory system ==

== ENCOUNTER → 2020-11-06 | Outpatient (CLI) | payer OTHER | LOC: SJCVC 13:56 | PROVIDERS: ATTEND Internal Medicine Cardiovascular Disease | DX: I44.0 Atrioventricular block, first degree (principal); I48.0 Paroxysmal atrial fibrillation; I47.1 Supraventricular tachycardia; I49.5 Sick sinus syndrome; G47.33 Obstructive sleep apnea (adult) (pediatric); I10 Essential (primary) hypertension; G89.29 Other chronic pain; G43.909 Migraine, unspecified, not intractable, without status migrainosus; M91.0 Juvenile osteochondrosis of pelvis; Z98.890 Other specified postprocedural states; Z88.8 Allergy status to other drugs, medicaments and biological substances; Z79.899 Other long term (current) drug therapy; Z86.73 Personal history of transient ischemic attack (TIA), and cerebral infarction without residual deficits; Z82.49 Family history of ischemic heart disease and other diseases of the circulatory system ==

== ENCOUNTER 2020-11-14 06:17 | Observation (INO) | payer OTHER ==
[~2020-11-14] VITALS: Ht 172.7 cm; Wt 76.2 kg
[2020-11-14 07:54] VITALS: BP 157/87
[2020-11-14 08:23] LABS: ABSOLUTE NEUTROPHILS 1.9 thou/uL (1.4-8.2); BASOPHILS 0.4 % (0.0-2.0); EOSINOPHILS 2.1 % (0.0-3.0); HEMOGLOBIN 14.3 gm/dL (14.0-18.0); LYMPHOCYTES 35.4 % (24.0-44.0); MCH 30.9 pg (26.0-34.0); MCHC 34.8 g/dL (28.0-37.0); MCV 88.7 fL (80.0-100.0); MONOCYTES 10.2 % (1.0-8.0); PLATELET COUNT 151 thou/uL (150-400); POLYS 51.9 % (36.0-66.0); RBC 4.62 mil/uL (4.50-6.00); RDW 13.7 % (10.5-14.5); WBC 3.6 thou/uL (4.0-11.0)
[2020-11-14 08:39] LABS: CALCIUM 9.3 mg/dL (8.5-10.1); CREATININE 1.2 mg/dL (0.7-1.3); POTASSIUM 3.3 mmol/L (3.5-5.1)
[2020-11-14 08:43] LABS: ALBUMIN 3.7 g/dL (3.4-5.0); TOTAL BILIRUBIN 0.6 mg/dL (0.2-1.0); TOTAL PROTEIN 6.5 g/dL (6.4-8.2)
[2020-11-14 09:15] LABS: APTT 26.2 Seconds (24.5-32.8); INR 0.99; PROTIME 10.8 Seconds (10.5-12.1)
[2020-11-14 10:45] VITALS: BP 138/81
--- NOTE | 2020-11-14 14:04 | NUR ---
Patient admits for pacemaker placement. met with patient and at bedside. Rec SWS consult. Patient reports he resides in home with . He has a cane he takes with him but does not always use at home or community. drives. Most needs on one level in home. Patients PCP Dr Dino Vera. [facility] following for dc planning.
[2020-11-14 15:33] VITALS: BP 158/82
[2020-11-14 20:13] VITALS: BP 165/92
[2020-11-14 22:48] VITALS: BP 154/86
[2020-11-15 02:13] VITALS: BP 140/76
--- NOTE | 2020-11-15 06:35 | NUR ---
ASSUMED CARE AT 1900. PT REPORTS CHRONIC BACK PAIN AND LEFT SHOULDER/CHEST PAIN FROM PACEMAKER PLACEMENT. SPOKE TO DR. WILLAMS ABOUT 2300, AND OBTAINED ORDER FOR PT'S HOME DOSE OF OXY IR, WELL A ONE TIME ORDER FOR CLONIDINE THAT PT REPORTED TAKING AT HOME WHEN HIS BP WAS ELEVATED. PM SITE C/D/I, SLIGHTLY RED. RHYTHM VARIED FROM SR TO AV-PACED, AND DEMAND A-PACE AND DEMAND V-PACE. PLAN FOR D/C HOME TODAY, NO OTHER CONCERNS, WILL CONTINUE TO MONITOR.
[2020-11-15 07:25] VITALS: BP 140/70
[2020-11-15 09:14] VITALS: BP 140/70
--- NOTE | 2020-11-15 10:52 | NUR ---
PT DISCHARGED HOME AT THIS TIME WITH . HE IS ALERT ORIENTED X4. DOES NOT SEEM TO BE IN PAIN AT THIS TIME. ASSISTED TO CAR ..
--- NOTE | 2020-11-16 15:18 | P ---
[facility] [place] [address] [place] [address] PROCEDURE REPORT Name: TELLY EVANS Room #: 208-P [facility] Kj M.Lisa#: [id number] Admission: 11/14/20 Attend Phys: Joseph Couch MD Discharge: 11/15/20 Date of : 46 Report #: [id number] THIS REPORT FOR: cc: Brain Vera MD, Jonathan MD Couchonnal,Joseph Mota MD ~ DOC #: [id number] Joseph Couch MD PREOPERATIVE DIAGNOSIS: Sick sinus syndrome. POSTOPERATIVE DIAGNOSES: 1. Sick sinus syndrome. 2. Third-degree heart block. INDICATIONS FOR PROCEDURE: The patient is a 75-year-old male status post prior AV ely reentrant tachycardia ablation several years ago, status post implantable loop recorder insertion, who has been having increased episodes of symptomatic bradycardia, here for dual chamber pacemaker implantation. ANESTHESIA: The patient underwent MAC anesthesia with no anesthesia related complications. INDICATION FOR PROCEDURE: The patient underwent informed consent. We discussed the details of the procedure including the risks, which include but not limited to bleeding, infection, vascular damage, cardiac perforation, and pneumothorax. He understood these risks and is willing to proceed. DESCRIPTION OF PROCEDURE: The patient was brought to the EP laboratory in a fasting and nonsedated state and prepped and draped in a sterile fashion. He received IV antibiotics prior to initiation of the procedure, underwent a venogram showing patency of left axillary vein. Next, lidocaine was injected at the level of the left clavicle. Incision was made, pocket was created over the prepectoral fascia. Access was obtained twice to left axillary vein. Sheaths positioned using the modified Seldinger technique and leads were positioned in the right ventricular apex and right atrial appendage, both with adequate pacing and sensing thresholds. With atrial pacing, it appeared that the patient had a complete heart block. Next, the leads were sutured to the prepectoral fascia. Device connected, tug test performed. Pocket was irrigated with vancomycin. Pocket closed in two layers and surgical glue was placed to outer skin layer. The implanted pacemaker and leads were TRAN.SLtronic. The can was a model #C3DR01, serial #[id number]. The atrial lead was a model #5076, 52 cm, serial #[id number]. The P waves were 2.8 millivolts, pacing impedance 661 ohms, pacing threshold 0.6 volts at 0.5 milliseconds. The RV lead was a 5076, 58 cm, serial #[id number]. The R waves were 9.7 millivolts, pacing impedance 752 ohms, pacing threshold 0.4 volts at 0.5 milliseconds. The device was programmed to the [facility] [address] [place] [address] PROCEDURE REPORT Name: TELLY EVANS Room #: 208-P ANTHONY Hooper#: [id number] Admission: 11/14/20 Attend Phys: Joseph Couch MD Discharge: 11/15/20 Date of : 47 Report #: [id number] AAIR/DDDR 60-130 mode. EXPLANTATION OF AN IMPLANTABLE LOOP RECORDER: After completion of the pacemaker, the patient was prepped and lidocaine was injected at the implantable loop recorder's prior incision site. Incision was made. Device was removed and a single layer of suture was performed and surgical glue was placed at this site as well. The patient awoke neurologically and hemodynamically intact. No complications. No significant bleeding. CONCLUSIONS: 1. Successful dual chamber pacemaker implantation. 2. Satisfactory atrial and ventricular pacing and sensing thresholds. 3. Successful implantation of an implantable loop recorder. Joseph Couch MD [facility] <ELECTRONICALLY SIGNED> By: Joseph Couch MD 11/16/20 1518 0930 [id number] Joseph Couch MD /chandra
== END 2020-11-15 10:30 | disposition home or self-care (01) ==
LOC: CATH 06:17 → 2N 10:50 → CATH 11:24 → 2N 11-15 10:30
PROVIDERS: ADMIT Internal Medicine Cardiovascular Disease; ATTEND Internal Medicine Cardiovascular Disease
DX: I49.5 Sick sinus syndrome (principal); Z20.822 Contact with and (suspected) exposure to COVID-19; I44.30 Unspecified atrioventricular block; I48.0 Paroxysmal atrial fibrillation; I10 Essential (primary) hypertension; G47.33 Obstructive sleep apnea (adult) (pediatric); F41.9 Anxiety disorder, unspecified; G89.29 Other chronic pain; G43.909 Migraine, unspecified, not intractable, without status migrainosus; K21.9 Gastro-esophageal reflux disease without esophagitis; M81.0 Age-related osteoporosis without current pathological fracture; G25.81 Restless legs syndrome; Z86.73 Personal history of transient ischemic attack (TIA), and cerebral infarction without residual deficits; Z79.899 Other long term (current) drug therapy
CPT/HCPCS: 62110; 62900; 70005

== ENCOUNTER → 2020-11-29 | Outpatient (CLI) | payer OTHER ==
[~2020-11-29] VITALS: Ht 172.7 cm; Wt 76.3 kg
[~2020-11-29] MED LIST changes: +OXYCODONE HCL E20 MG PO
[2020-11-29 14:04] VITALS: BP 120/75
--- NOTE | 2020-11-29 14:39 | NUR ---
Pain Clinic Assessment: 1. History of Osteoarthritis: knees,feet,back,neck shoulders History of Rheumatoid Arthritis: DENIES 2. Height: 5 ft. 8 in. 172.7 cm. Weight: 168.2 lb. oz. 76.295 kg. Patient's BMI: 25.6 3. Vital Signs: BP: 120/75 Pulse: 64 Resp: 16 Temp: 02 Sat: 97 ECG Mon: 4. Pain Intensity: 4 5. Fall Risk: Dizziness: Y Needs help standing or walking: N Fallen in the last 3 months: N Fall risk comments: 6. Patient on Blood Thinner: DARIANRLTO 7. History of Hypertension: Y 8. Opioid Therapy greater than 6 weeks: Y Opiate Contract Signed: 11/22/15 9. Risk Assessment Tool Provided: low-0 10. Functional Assessment Tool: 11. Recreational Drug Use: Never Drug Type: Tobacco Use: Never Smoker Tobacco Type: Amount or Packs/day: How Many Years: Alcohol Use: Yes Frequency: Daily Quant: 1
== END ==
LOC: PAIN 10:47
PROVIDERS: ATTEND Anesthesiology Pain Medicine
DX: G89.4 Chronic pain syndrome (principal); M79.7 Fibromyalgia; M19.90 Unspecified osteoarthritis, unspecified site; M47.812 Spondylosis without myelopathy or radiculopathy, cervical region; M47.816 Spondylosis without myelopathy or radiculopathy, lumbar region; F41.9 Anxiety disorder, unspecified; Z79.899 Other long term (current) drug therapy; Z79.891 Long term (current) use of opiate analgesic; Z72.89 Other problems related to lifestyle; Z88.1 Allergy status to other antibiotic agents; Z88.8 Allergy status to other drugs, medicaments and biological substances

== ENCOUNTER → 2021-01-28 | Outpatient (CLI) | payer OTHER ==
[~2021-01-28] VITALS: Ht 172.7 cm; Wt 76.7 kg
[~2021-01-28] MED LIST changes: +ALLEGRA ALLERG180 MG PO; +CLONIDINE HCL0.1 MG PO; +K2 PLUS D3 TAB1 EACH PO; +STRONTIUM CHLORI1 GM PO
[2021-01-28 13:30] VITALS: BP 131/79
--- NOTE | 2021-01-28 13:34 | NUR ---
Pain Clinic Assessment: 1. History of Osteoarthritis: knees,feet,back,neck shoulders History of Rheumatoid Arthritis: DENIES 2. Height: 5 ft. 8 in. 172.7 cm. Weight: 169.0 lb. oz. 76.658 kg. Patient's BMI: 25.7 3. Vital Signs: BP: 131/79 Pulse: 87 Resp: 16 Temp: 02 Sat: 94 ECG Mon: 4. Pain Intensity: 6 5. Fall Risk: Dizziness: N Needs help standing or walking: N Fallen in the last 3 months: N Fall risk comments: 6. Patient on Blood Thinner: xarelto 7. History of Hypertension: Y 8. Opioid Therapy greater than 6 weeks: Y Opiate Contract Signed: 11/22/15 9. Risk Assessment Tool Provided: low-0 10. Functional Assessment Tool: 11. Recreational Drug Use: Never Drug Type: Tobacco Use: Never Smoker Tobacco Type: Amount or Packs/day: How Many Years: Alcohol Use: Yes Frequency: Quant:
== END ==
LOC: PAIN 11:16
PROVIDERS: ATTEND Clinical Nurse Specialist Adult Health
DX: G89.4 Chronic pain syndrome (principal); M79.7 Fibromyalgia; M19.90 Unspecified osteoarthritis, unspecified site; M47.816 Spondylosis without myelopathy or radiculopathy, lumbar region; I48.91 Unspecified atrial fibrillation; Z95.0 Presence of cardiac pacemaker; F41.9 Anxiety disorder, unspecified; Z79.891 Long term (current) use of opiate analgesic; Z79.899 Other long term (current) drug therapy

== ENCOUNTER → 2021-03-25 | Outpatient (CLI) | payer OTHER | LOC: SJCVC 13:52 | PROVIDERS: ATTEND Internal Medicine | DX: R94.31 Abnormal electrocardiogram [ECG] [EKG] (principal); I47.1 Supraventricular tachycardia; I48.0 Paroxysmal atrial fibrillation; I10 Essential (primary) hypertension; G47.33 Obstructive sleep apnea (adult) (pediatric); G45.9 Transient cerebral ischemic attack, unspecified; E78.5 Hyperlipidemia, unspecified; G89.4 Chronic pain syndrome; Z79.01 Long term (current) use of anticoagulants; Z72.89 Other problems related to lifestyle; Z79.899 Other long term (current) drug therapy; Z88.1 Allergy status to other antibiotic agents; Z88.8 Allergy status to other drugs, medicaments and biological substances ==

== ENCOUNTER → 2021-04-04 | Outpatient (CLI) | payer OTHER ==
[~2021-04-04] VITALS: Ht 172.7 cm; Wt 79.4 kg
[~2021-04-04] MED LIST changes: +CRESTOR20 MG PO
[2021-04-04 12:43] VITALS: BP 148/90
--- NOTE | 2021-04-04 13:17 | NUR ---
Pain Clinic Assessment: 1. History of Osteoarthritis: knees,feet,back,neck shoulders History of Rheumatoid Arthritis: DENIES 2. Height: 5 ft. 8 in. 172.7 cm. Weight: 175.0 lb. oz. 79.380 kg. Patient's BMI: 26.6 3. Vital Signs: BP: 148/90 Pulse: 83 Resp: 14 Temp: 02 Sat: 97 ECG Mon: 4. Pain Intensity: 7 5. Fall Risk: Dizziness: N Needs help standing or walking: N Fallen in the last 3 months: N Fall risk comments: 6. Patient on Blood Thinner: xarelto 7. History of Hypertension: Y 8. Opioid Therapy greater than 6 weeks: Y Opiate Contract Signed: 11/22/15 9. Risk Assessment Tool Provided: low-0 10. Functional Assessment Tool: 11. Recreational Drug Use: Never Drug Type: Tobacco Use: Never Smoker Tobacco Type: Amount or Packs/day: How Many Years: Alcohol Use: Yes Frequency: Quant:
== END ==
LOC: PAIN 11:03
PROVIDERS: ATTEND Clinical Nurse Specialist Adult Health
DX: G89.4 Chronic pain syndrome (principal); M19.90 Unspecified osteoarthritis, unspecified site; M17.0 Bilateral primary osteoarthritis of knee; F41.9 Anxiety disorder, unspecified; Z79.891 Long term (current) use of opiate analgesic; Z79.899 Other long term (current) drug therapy

== ENCOUNTER → 2021-06-03 | Outpatient (CLI) | payer OTHER ==
[~2021-06-03] VITALS: Ht 172.7 cm; Wt 80.2 kg
[2021-06-03 13:29] VITALS: BP 102/71
--- NOTE | 2021-06-03 13:39 | NUR ---
Pain Clinic Assessment: 1. History of Osteoarthritis: knees,feet,back,neck shoulders History of Rheumatoid Arthritis: DENIES 2. Height: 5 ft. 8 in. 172.7 cm. Weight: 176.8 lb. oz. 80.196 kg. Patient's BMI: 26.9 3. Vital Signs: BP: 102/71 Pulse: 87 Resp: 20 Temp: 02 Sat: 95 ECG Mon: 4. Pain Intensity: 7 5. Fall Risk: Dizziness: N Needs help standing or walking: N Fallen in the last 3 months: N Fall risk comments: 6. Patient on Blood Thinner: xarelto 7. History of Hypertension: Y 8. Opioid Therapy greater than 6 weeks: Y Opiate Contract Signed: 11/22/15 9. Risk Assessment Tool Provided: low-0 10. Functional Assessment Tool: 11. Recreational Drug Use: Never Drug Type: Tobacco Use: Never Smoker Tobacco Type: Amount or Packs/day: How Many Years: Alcohol Use: Yes Frequency: Quant:
== END ==
LOC: PAIN 10:10
PROVIDERS: ATTEND Anesthesiology Pain Medicine
DX: G89.29 Other chronic pain (principal); M54.16 Radiculopathy, lumbar region; M79.7 Fibromyalgia; F41.8 Other specified anxiety disorders; Z88.8 Allergy status to other drugs, medicaments and biological substances; Z79.899 Other long term (current) drug therapy

== ENCOUNTER → 2021-08-01 | Outpatient (CLI) | payer OTHER ==
[~2021-08-01] VITALS: Ht 172.7 cm; Wt 81.6 kg
[2021-08-01 12:48] VITALS: BP 104/75
--- NOTE | 2021-08-01 13:09 | NUR ---
Pain Clinic Assessment: 1. History of Osteoarthritis: knees,feet,back,neck shoulders History of Rheumatoid Arthritis: DENIES 2. Height: 5 ft. 8 in. 172.7 cm. Weight: 179.8 lb. oz. 81.557 kg. Patient's BMI: 27.3 3. Vital Signs: BP: 104/75 Pulse: 88 Resp: 14 Temp: 02 Sat: 97 ECG Mon: 4. Pain Intensity: 7-9 W/ACTIVITY 5. Fall Risk: Dizziness: N Needs help standing or walking: N Fallen in the last 3 months: N Fall risk comments: 6. Patient on Blood Thinner: xarelto 7. History of Hypertension: Y 8. Opioid Therapy greater than 6 weeks: Y Opiate Contract Signed: 11/22/15 9. Risk Assessment Tool Provided: low-0 10. Functional Assessment Tool: 11. Recreational Drug Use: Never Drug Type: Tobacco Use: Never Smoker Tobacco Type: Amount or Packs/day: How Many Years: Alcohol Use: Yes Frequency: Quant:
== END ==
LOC: PAIN 08:52
PROVIDERS: ATTEND Clinical Nurse Specialist Adult Health
DX: G89.29 Other chronic pain (principal); M54.16 Radiculopathy, lumbar region; M79.7 Fibromyalgia; F34.9 Persistent mood [affective] disorder, unspecified; Z88.8 Allergy status to other drugs, medicaments and biological substances; Z79.899 Other long term (current) drug therapy